=== PATIENT | female | born 1945 | race Caucasian/White ===

== ENCOUNTER → 2016-08-26 | Outpatient (CLI) | payer MEDICARE, BC ==
--- NOTE | 2016-08-26 09:05 | MM ---
Reason for exam: follow-up at short interval from prior study. Last mammogram was performed 6 months ago. History: Patient is postmenopausal. Benign US left guided VAD of the left breast, July 09, 2010. Benign US right guided VAD of the right breast, July 09, 2010. Cancelled Left US Needle Biopsy of the left breast, July 09, 2010. Reductions of both breasts, 2009. Took hormonal contraceptives for 3 years beginning at age 19. Physical Findings: Nurse did not find any significant physical abnormalities on exam. MG 3D Diag Mammo W/Cad BRIAN Bilateral CC and MLO view(s) were taken. Prior study comparison: February 18, 2016, bilateral MG 3d diag mammo w/cad BRIAN. September 05, 2015, right breast MG 3d diag mammo w/cad RT. There are scattered fibroglandular densities. No suspicious calcifications are seen. There is chronic nodularity. There is no dominant lesion. Post operative changes of bilateral mammoplasty. These results were verbally communicated with the patient and result sheet given to the patient on 08/26/16. ASSESSMENT: Incomplete: need additional imaging evaluation, BI-RAD 0 RECOMMENDATION: Ultrasound of the right breast.
--- NOTE | 2016-08-26 09:06 | USB ---
Reason for exam: follow-up at short interval from prior study. History: Patient is postmenopausal. Benign US left guided VAD of the left breast, July 09, 2010. Benign US right guided VAD of the right breast, July 09, 2010. Cancelled Left US Needle Biopsy of the left breast, July 09, 2010. Reductions of both breasts, 2009. Took hormonal contraceptives for 3 years beginning at age 19. US Breast RT Right breast ultrasound includes all four quadrants, the retroareolar region and axilla. Finding demonstrate a 0.6 x 0.5 x 0.5cm oval, cystic lesion at 7 o'clock. These results were verbally communicated with the patient and result sheet given to the patient on 08/26/16. ASSESSMENT: Benign, BI-RAD 2 RECOMMENDATION: Follow-up diagnostic mammogram of both breasts in 1 year.
== END | disposition home or self-care (01) ==
LOC: RADMAMWWP 07:55
PROVIDERS: ATTEND Family Medicine
DX: R92.8 Other abnormal and inconclusive findings on diagnostic imaging of breast (principal)
CPT/HCPCS: 76641; G0204; G0279

== ENCOUNTER → 2018-05-18 | Outpatient (CLI) | payer MEDICARE ==
--- NOTE | 2018-05-18 14:40 | MM ---
Reason for exam: additional evaluation requested from prior study. Last mammogram was performed 1 year and 9 months ago. History: Patient is postmenopausal. Benign US left guided VAD of the left breast, July 09, 2010. Benign US right guided VAD of the right breast, July 09, 2010. Cancelled Left US Needle Biopsy of the left breast, July 09, 2010. Reductions of both breasts, 2009. Took hormonal contraceptives for 3 years beginning at age 19. Physical Findings: Nurse Summary: 0.5cm nodule in the left breast at 11 o'clock (nurse mj). MG Diagnostic Mammo w CAD BRIAN Bilateral CC and MLO view(s) were taken. Prior study comparison: August 26, 2016, bilateral MG 3d diag mammo w/cad BRIAN. February 18, 2016, bilateral MG 3d diag mammo w/cad BRIAN. There are benign appearing round dystrophic calcifications bilaterally. Previous mammotome biopsy in the right and left breast. There is no discrete abnormality. Left BB at palpable correlates to clip and dystrophic calcifications. These results were verbally communicated with the patient and result sheet given to the patient on 05/18/18. ASSESSMENT: Benign, BI-RAD 2 RECOMMENDATION: Routine screening mammogram of both breasts in 1 year.
== END | disposition home or self-care (01) ==
LOC: RADMAMWWP 13:44
PROVIDERS: ATTEND Family Medicine
DX: R92.8 Other abnormal and inconclusive findings on diagnostic imaging of breast (principal)
CPT/HCPCS: 77066

== ENCOUNTER → 2018-08-04 | Outpatient (CLI) | payer MEDICARE | END | disposition home or self-care (01) | LOC: LABWHC1 13:34 | PROVIDERS: ATTEND Otolaryngology | DX: K11.7 Disturbances of salivary secretion (principal) | CPT/HCPCS: 36415; 86235 ==

== ENCOUNTER → 2018-08-10 | Outpatient (CLI) | payer MEDICARE ==
--- NOTE | 2018-08-10 12:23 | FL ---
EXAMINATION TYPE: FL barium swallow DATE OF EXAM: 08/10/2018 CLINICAL HISTORY: Difficulty initiating swallow. Upper esophageal dysphagia. Severe gastroesophageal reflux worse when supine. TECHNIQUE: A double contrast esophagram is performed utilizing air and barium. A total of 2 minutes and 19 seconds of fluoroscopic time was utilized during procedure. 43 fluoroscopic images were saved . COMPARISON: None FINDINGS: There is a delayed initiation of swallowing throughout the exam. The patient describes difficulty ini tiating swallowing. After multiple swallows distal esophageal tertiary contractions were seen likely relating to presbyes ophagus. Small hiatal hernia is present. Severe gastroesophageal reflux was noted on supine imaging w ith mild intraesophageal reflux on upright imaging. IMPRESSION: 1. Small hiatal hernia. 2. Difficulty with initiation of swallowing. Speech therapy consultation may be helpful. 3. Severe gastroesophageal reflux in the supine position. 4. Moderate intraesophageal reflux on upright imaging. 5. Pressure contractions in the distal esophagus suggesting presbyesophagus.
== END | disposition home or self-care (01) ==
LOC: RADFLWHC 09:49
PROVIDERS: ATTEND Otolaryngology
DX: K44.9 Diaphragmatic hernia without obstruction or gangrene (principal); K21.9 Gastro-esophageal reflux disease without esophagitis; K22.8 Other specified diseases of esophagus
CPT/HCPCS: 74220

== ENCOUNTER → 2019-01-17 | Outpatient (CLI) | payer MEDICARE ==
--- NOTE | 2019-01-17 12:23 | CT ---
EXAMINATION TYPE: CT sinus wo con DATE OF EXAM: 01/17/2019 COMPARISON: 10/09/2010 HISTORY: 73-year-old female sinus drainage. Prior sinus surgery in 2009 CT DLP: 545 mGycm Automated exposure control for dose reduction was used. TECHNIQUE: Noncontrast axial views of the paranasal sinuses were obtained. Coronal reconstructions we re performed. FINDINGS: PARANASAL SINUSES: Trace mucosal thickening along the floors of the maxillary sinuses. The frontal, ethmoid, and sphenoi d sinuses are clear and well pneumatized. There is no air-fluid level. Reactive jairo- osteogenesis is not seen. There is no destruction of the osseous neville of the paranasal sinuses. THE NASAL CAVITY: The osteomeatal complexes are patent. The nasal septum is not deviated. The imaged brain shows moderate generalized atrophy. Mastoid air cells and middle ear cavities are well pneumatized. Reformatted images confirm above findings. IMPRESSION: 1. Mild chronic maxillary sinus disease. 2. Rightward nasal septal deviation. 3. Moderate generalized cerebral atrophy.
== END | disposition home or self-care (01) ==
LOC: RADCTMAIN 10:53
PROVIDERS: ATTEND Otolaryngology
DX: J32.0 Chronic maxillary sinusitis (principal); J34.2 Deviated nasal septum; G31.1 Senile degeneration of brain, not elsewhere classified
CPT/HCPCS: 70486

== ENCOUNTER → 2020-07-31 | Outpatient (CLI) | payer MEDICARE ==
--- NOTE | 2020-08-01 04:59 | MR ---
EXAMINATION TYPE: MR cervical spine wo con DATE OF EXAM: 07/31/2020 COMPARISON: None HISTORY: 74-year-old female M54.5, cervicalgia. Headache, Dizziness TECHNIQUE: Multiplanar, multisequence images of the cervical spine were acquired. FINDINGS: No craniocervical junction abnormality, predental space widening, or prevertebral soft tissue swellin g. Postsurgical change of C4-C5 ACDF Moderate degenerative disc disease elsewhere in the cervical spine. There is a degenerative grade 1 anterolisthesis at C5-C6 and C7-T1. Ligamentum flavum thickening especially upper to mid cervical spine with multilevel facet and uncover tebral joint arthropathy. Heterogeneous marrow signal with some levels of Modic type II fatty endplate change such as anteriorl y at C7-T1. At C2-C3, there is posterior disc bulge with ligamentum flavum thickening contributing to a mild over all narrowing of the spinal canal. With facet arthropathy, no significant neuroforaminal stenosis. At C3-C4, above the fusion, there is ligamentum flavum thickening contributing to mild overall narrow ing of the spinal canal. Hypertrophic facet and uncovertebral joint arthropathy with mild left neurof oraminal stenosis. At the fused C4-C5 level, there is ligamentum flavum thickening and some residual posterior osteophyt ic ridging contributing to mild narrowing of the spinal canal. There is residual hyperostotic changes at the right uncovertebral and facet joint contributing to a moderate right neuroforaminal stenosis. Below the fusion at C5-C6, there is hypertrophic facet and uncovertebral joint arthropathy with grade 1 anterolisthesis. There is posterior disc bulge with a mild to moderate narrowing of the spinal can al with abutment and slight flattening of the ventral cord but no duke cord compression. Mild bilate ral neuroforaminal stenosis. At C6-C7, facet and uncovertebral joint arthropathy without significant canal or foraminal stenosis. At C7-T1, uncovertebral joint and facet arthropathy with right paracentral disc bulge. Trace grade 1 anterolisthesis. There is impression on the ventral thecal sac without significant spinal canal steno sis. Mild right neuroforaminal stenosis. At T1-T2, posterior disc bulge impressing on the ventral thecal sac without significant canal stenosi s. There is facet arthropathy with mild bilateral neuroforaminal stenosis. Normal course and signal intensity of the cervical spinal cord. No discrete myelopathic cord signal c shantal. IMPRESSION: 1. Status post C4-C5 ACDF. Residual bony hyperostosis at this level results in a moderate right neuro foraminal stenosis. 2. Moderate degenerative disc disease throughout the unfused levels with scattered facet and uncovert ebral joint arthropathy. Ligamentum flavum thickening in the upper to mid cervical spine. Degenerativ e grade 1 anterolisthesis at C5-C6 and C7-T1. 3. Below the fusion at C5-C6, there is a grade 1 anterolisthesis and disc bulge resulting in a mild t o moderate narrowing of the spinal canal with abutment of the ventral cord but no cord compression. 4. Additional mild narrowing of the spinal canal at C2-C3, C3-C4, and the fused C4-C5 levels. No high -grade canal compromise. 5. Additional variable mild neuroforaminal stenoses as outlined above.
== END ==
LOC: RADMRIMAIN 12:21
PROVIDERS: ATTEND Family Medicine
DX: M48.02 Spinal stenosis, cervical region (principal); M50.222 Other cervical disc displacement at C5-C6 level; Z98.1 Arthrodesis status
CPT/HCPCS: 72141

== ENCOUNTER → 2022-04-07 | Outpatient (CLI) | payer MEDICARE ==
--- NOTE | 2022-04-08 12:55 | MR ---
EXAMINATION TYPE: MR cervical spine wo/w con DATE OF EXAM: 04/07/2022 COMPARISON: 06/20/2015 HISTORY: Neck pain and headaches, history of surgery. CONTRAST: Performed utilizing 9 mL intravenous Gadavist gadolinium contrast. TECHNIQUE: Multiplanar multiecho imaging on a 3.0 Miriam magnet is performed through the cervical spin e. FINDINGS: The craniovertebral junction is normal. Vertebral body alignment is normal. Anterior cer vical fusion of C4-5 is present. Spinal cord maintains normal signal throughout the visualized course . C7-T1: There is loss of disc height is normal. Residual disc bulge anterior thecal sac flattening. N o cord contact. No spinal canal stenosis is present. There may be some uncovertebral joint hypertroph y contributing to right foraminal narrowing.. C6-7: There is loss of disc height is level. Minimal residual disc bulge mildly with anterior thecal sac compression. Some cord contact may be present. No cord deformity is evident. No spinal canal sten osis or neural foraminal stenosis.. C5-6: There is loss of disc height is level. Residual disc bulges anterior thecal sac contact. This c omes in close approximation with the spinal cord. No spinal canal stenosis is present. Some foraminal narrowing may be present from uncovertebral joint hypertrophy.. C4-5: There is loss of disc height to this level. Disc material does not clearly identified. No AP sp inal canal stenosis present. No cord contact. Right foramen is not well visualized. Left foramen appe ars widely patent.. C3-4: No focal disc herniation or significant disc bulge is evident. No spinal canal stenosis or sreekanth ral foraminal stenosis is present. C2-3: There is some mild central bulging with [id number] anterior thecal sac compression is com es in close approximation of the spinal cord. No cord deformity is evident. No spinal canal stenosis present. No abnormal enhancement is evident. IMPRESSIONS: 1. Multilevel degenerative disc changes discussed above. 2. Right foraminal narrowing due to uncovertebral joint hypertrophy C7-T1. 3. Disc bulging C6-7 may have some cord contact without deformity. Some minimal residual disc bulge a t C5-6 comes in close approximation to the spinal cord without deformity. Some mild disc bulging is a lso present at C2-3 without cord contact. 4. Findings are similar to the comparison 2015.
== END | disposition home or self-care (01) ==
LOC: RADMRIMAIN 11:52
PROVIDERS: ATTEND Orthopaedic Surgery
DX: M50.123 Cervical disc disorder at C6-C7 level with radiculopathy (principal); M43.22 Fusion of spine, cervical region; M48.02 Spinal stenosis, cervical region; M19.012 Primary osteoarthritis, left shoulder; M17.12 Unilateral primary osteoarthritis, left knee
CPT/HCPCS: 72156; A9585

== ENCOUNTER → 2022-09-23 | Outpatient (CLI) | payer MEDICARE ==
--- NOTE | 2022-09-23 09:51 | CT ---
EXAMINATION TYPE: CT shoulder LT wo con DATE OF EXAM: 09/23/2022 COMPARISON: None. HISTORY: pre op left shoulder. Pain. Severe glenohumeral osteoarthritis. CT DLP: 534 mGycm Automated exposure control for dose reduction was used. FINDINGS: Severe degenerative change left glenohumeral joint is confirmed with marked narrowing greatest inferi sanju. There is large bony projection from the medial aspect of the humeral head extending inferiorly measuring 2.1 x 0.7 cm coronal image 26. There is adjacent sclerosis and subchondral cystic change. S ome joint effusion extending anteriorly is felt present. Neutral version is noted. Moderate narrowing with moderate superior capsular hypertrophy at the acromioclavicular joint. Distal and acromion morphology is unremarkable. Rotator cuff muscle bulk is preserved. Visualized left lung is grossly clear. IMPRESSION: As above.
== END | disposition home or self-care (01) ==
LOC: RADCTMAIN 08:40
PROVIDERS: ATTEND Orthopaedic Surgery Hand Surgery
DX: M19.012 Primary osteoarthritis, left shoulder (principal); M25.412 Effusion, left shoulder; M25.812 Other specified joint disorders, left shoulder

== ENCOUNTER → 2022-10-23 | Outpatient (CLI) | payer MEDICARE ==
[2022-10-23 15:01] LABS: INR 1.3 (<1.2); Prothrombin Time 13.5 sec (9.0-12.0)
[2022-10-23 20:14] LABS: HCT 37.1 % (37.2-46.3); HGB 11.5 g/dL (12.0-15.0); MCH 26.1 pg (27.0-32.0); MCV 84.1 fL (80.0-97.0); Mean Platelet Volume 10.4 fL (9.5-12.2); NRBC Per 100 WBC 0 /100 WBCS (0.0-0.0); Platelet Count 306 X 10*3/uL (140-440); RBC 4.41 X 10*6/uL (4.10-5.20); RDW 14.7 % (11.5-14.5); WBC 6.05 X 10*3/uL (4.50-10.00)
[2022-10-23 20:26] LABS: Appearance,Urine Clear (Clear); Bilirubin,Urine Negative (Negative); Blood,Urine Negative (Negative); Color,Urine Yellow (Yellow); Ketones,Urine Negative (Negative); Nitrite,Urine Negative (Negative); PH, Urine 8.5 (5.0-8.0); Specific Gravity,Urine 1.016 (1.001-1.030)
[2022-10-23 20:32] LABS: Bacteria,Urine Trace /HPF (None Seen)
[2022-10-23 20:44] LABS: African American GFR (CKD) 96.2 (60.0-200.0); Albumin/Globulin Ratio 1.38 (1.60-3.17); BUN/Creat Ratio 14.14 Ratio (12.00-20.00); Blood Urea Nitrogen 9.9 mg/dL (9.0-27.0); Globulin 2.9 g/dL (1.6-3.3); Potassium 4.3 mmol/L (3.5-5.5); Total Bilirubin 1.5 mg/dL (0.30-1.20); Total Protein 6.9 g/dL (6.2-8.2)
== END | disposition home or self-care (01) ==
LOC: LABPAT 13:48
PROVIDERS: ATTEND Orthopaedic Surgery Hand Surgery
DX: Z01.818 Encounter for other preprocedural examination (principal); M19.012 Primary osteoarthritis, left shoulder; I49.3 Ventricular premature depolarization; I44.0 Atrioventricular block, first degree
CPT/HCPCS: 80053; 81001; 85027; 85610; 85730; 87070; 93005

== ENCOUNTER 2022-11-02 09:53 | Day surgery (SDC) | payer MEDICARE ==
[~2022-11-02 09:53] MED LIST: ACETAMINOPHEN TAB 500 MG TAB PO PRN; GABAPENTIN 300 MG CAP PO PRN; MELOXICAM 7.5 MG TAB PO PRN; ONDANSETRON 4 MG/2 ML VIAL IVP PRN
[2022-11-02] MEDS ORDERED: ONDANSETRON 4 MG/2 ML VIAL IVP ONE (10:20)
[2022-11-02] MEDS ORDERED: MIDAZOLAM 2 MG/2 ML VIAL IV PRN (10:20)
[2022-11-02] MEDS ORDERED: LIDOCAINE 1% (10MG/ML) FOR IV START INTRADERMA PRN (10:20)
[2022-11-02] MEDS ORDERED: HYDROmorphone 0.5 MG/0.5 ML SYRINGE IVP PRN ×3 (10:20→13:43)
[2022-11-02] MEDS ORDERED: DEXAMETHASONE SOD PHOSPHATE 4 MG/ML 1 ML VIAL IV ONE (10:20)
[2022-11-02] MEDS ORDERED: VANCOMYCIN 1,500 MG in SODIUM CHLORIDE 0.9% 500 ML 500 ML IVPB PRN (10:30)
[2022-11-02] MEDS: LACTATED RINGERS 1,000 ML IV SCH (11:11)
[2022-11-02 11:17] LABS: Glucose,Whole Blood 145 mg/dL (70-110)
[2022-11-02 11:51] LABS: INR 1.1 (<1.2); Prothrombin Time 11.2 sec (9.0-12.0)
--- NOTE | 2022-11-02 13:16 | P.CRDCN ---
History of Present Illness Consult date: 11/02/22 History of present illness: HISTORY OF PRESENT ILLNESS: This is a 77-year-old female with a past medical history significant for DVT/PE, hypertension, hyperlipidemia, hypothyroidism, diabetes, and seizure disorder. We have been asked to see the patient in consultation for atrial fibrillation. Patient examined at the bedside in the preoperative area. Patient is scheduled to undergo left total shoulder replacement today with Dr. Sanchez. Preoperative EKG performed revealing atrial fibrillation. The patient denies a history of atrial fibrillation. Her rates are controlled. She denies chest pain or pressure. Denies SOB. Denies for patient. Denies dizziness or lightheadedness. She states she had a stress test that was performed recently which was negative to her knowledge. She states that she obtained cardiac clearance from her cardiolo gist, Dr. Roldan in [place]. REVIEW OF SYSTEMS: At the time of my exam: CONSTITUTIONAL: Denies fever or chills. HEENT: Denies blurred vision, vision changes, or eye pain. Denies hemoptysis CARDIOVASCULAR: Denies chest pain. Denies orthopnea. Denies PND. Denies palpitations RESPIRATORY: Denies shortness of breath. GASTROINTESTINAL: Denies abdominal pain. Denies nausea or vomiting. HEMATOLOGIC: Denies bleeding disorders. GENITOURINARY: Denies any blood in urine. SKIN: Denies pruitis. Denies rash. PHYSICAL EXAM: VITAL SIGNS: Reviewed. GENERAL: Well-developed in no acute distress. HEENT: Head is normocephalic. Pupils are equal, round. Sclerae anicteric. Mucous membranes of the mouth are moist. Neck supple. No JVD or thyromegaly LUNGS: Respirations even and unlabored. Lungs essentially clear to auscultation bilaterally. HEART: Irregular rate and rhythm. S1 and S2 heard. ABDOMEN: Soft. Nondistended. Nontender. EXTREMITIES: Normal range of motion. No clubbing or cyanosis. Peripheral pulses intact. No lower extremity edema NEUROLOGIC: Awake and alert. Oriented x 3. ASSESSMENT: Osteoarthritis, scheduled for left total shoulder replacement New-onset atrial fibrillation with controlled ventricular rates, duration unknown History of DVT/PE, on warfarin outpatient Hypertension Hyperlipidemia Hypothyroidism Diabetes Seizure disorder PLAN: Patient evaluated at the bedside by Dr. Russ. Patient may proceed with surgery today per Dr. Russ. She is to resume per coumadin MICHELLE after surgery. She is to resume her atenolol as well for rate control. Patient instructed to follow up post discharge with her primary portable irrigation operator. Nurse practitioner note has been reviewed by physician. Signing provider agrees with the documented findings, assessment, and plan of care. Past Medical History Past Medical History: Diabetes Mellitus, Deep Vein Thrombosis (DVT), GERD/Reflux, GI Bleed, Hyperlipidemia, Hypertension, Myocardial Infarction (UT), Musculoskeletal Disorder, Osteoarthritis (OA), Pulmonary Embolus (PE), Thyroid Disorder Additional Past Medical History / Comment(s): dvt lt leg, pancreatitis, past hx. MIGRAINES, DIVERTICULITIS, chronic neck pain & chronic headaches, multiple PE's 2015-had surg., pt. denies any hx. of [place], uses cane for balance, had recent stress test, awaiting results Last Myocardial Infarction Date:: unknown History of Any Multi-Drug Resistant Organisms: None Reported Past Surgical History: Adenoidectomy, Appendectomy, Back Surgery, Breast Surgery, Cholecystectomy, Heart Catheterization, Joint Replacement, Orthopedic Surgery, Tonsillectomy, Tubal Ligation Additional Past Surgical History / Comment(s): agus filter removed, CATARACTS-LENS IMPLANTS, BREAST REDUCTION, RT KNEE REPLACEMENT, 2 TUMORS REMOVED FROM RT LEG ,LT EYE SOCKET TUMOR REMOVED.HEMORRHIODECTOMY, RHIZOTOMY, ant. cervical fusion 2014 Past Anesthesia/Blood Transfusion Reactions: No Reported Reaction Additional Past Anesthesia/Blood Transfusion Reaction / Comment(s): limited ROM neck Smoking Status: Former smoker - Past Family History Father Family Medical History: Cancer, Thyroid Disorder Additional Family Medical History / Comment(s): Liver CA Mother Family Medical History: Thyroid Disorder Sister(s) Family Medical History: Cancer Additional Family Medical History / Comment(s): Throat CA Medications and Allergies Home Medications Medication Instructions Recorded Confirmed Type Atenolol/Chlorthalidone 1 each PO DAILY 10/08/14 10/30/22 History [Atenolol-Chlorthalidone 50-25] Atorvastatin [Lipitor] 20 mg PO HS 10/08/14 10/30/22 History Divalproex [Depakote] 250 mg PO BID 10/08/14 10/30/22 History Insulin Detemir (Levemir) [Levemir] 26 unit SQ HS 10/08/14 11/02/22 History Levothyroxine Sodium [Synthroid] 137 mcg PO DAILY 10/08/14 10/30/22 History QUEtiapine [SEROquel] 100 mg PO HS 10/08/14 10/30/22 History DULoxetine HCL [Cymbalta] 60 mg PO DAILY 10/30/22 11/02/22 History HYDROcodone/APAP 7.5-325MG [[place] 1 tab PO Q8H PRN 10/30/22 11/02/22 History 7.5-325] Omeprazole [PriLOSEC] 20 mg PO AC-BRKFST 10/30/22 10/30/22 History Warfarin [Coumadin] 7.5 mg PO HS 10/30/22 11/02/22 History Allergies Allergy/AdvReac Type Severity Reaction Status Date / Time adhesive Allergy swelling,rash Verified 11/02/22 10:42 to surgical adhesive Horse/Equine Containing Allergy Unknown Verified 11/02/22 10:42 Products venom-honey bee Allergy Swelling Verified 11/02/22 10:42 [bee venom (honey bee)] Physical Exam Vitals: Vital Signs Temp Pulse Resp BP BP Pulse Ox 11/02/22 12:52 64 16 138/74 100 11/02/22 12:17 109 H 16 151/71 98 11/02/22 10:57 96.9 F L 64 18 171/80 95 Intake and Output 11/01/22 11/02/22 11/02/22 22:59 06:59 14:59 Other: Weight 97.2 kg Results Coagulation 11/02/22 Range/Units 11:27 PT 11.2 (9.0-12.0) sec Current Medications Generic Name Dose Route Start Last Admin Trade Name Freq PRN Reason Stop Dose Admin Cefazolin Sodium 2 gm/ Sodium 50 mls @ 100 mls/hr 11/02/22 05:00 Chloride IVPB 11/02/22 23:00 ONCE PRN pre-op Lactated Ringer's 1,000 mls @ 20 mls/hr 11/02/22 10:20 11/02/22 11:11 Lactated Ringers IV 12/02/22 10:21 0 mls .Q24H JOSÉ MIGUEL Administration Lidocaine HCl 0.1 ml 11/02/22 10:20 Lidocaine 1% (10mg/Ml) For Iv Start INTRADERMA 12/02/22 10:21 PER PROTOCOL PRN IV Start Ondansetron HCl 4 mg 11/02/22 05:00 Ondansetron 4 Mg/2 Ml Vial IVP 11/02/22 23:00 ONCE PRN pre-op Intake and Output 11/01/22 11/02/22 11/02/22 22:59 06:59 14:59 Other: Weight 97.2 kg Patient Weight 11/03/22 06:59 Weight 97.2 kg
[2022-11-02] MEDS ORDERED: TRANEXAMIC ACID 1,000 MG in SODIUM CHLORIDE 0.9% 100 ML IVPB ONE (13:22)
[2022-11-02] MEDS ORDERED: NEOSTIGMINE 1 MG/ML 10 ML VIAL ONE (13:33)
[2022-11-02] MEDS ORDERED: PROPOFOL 10 MG/ML 20 ML VIAL IV ONE (13:33)
[2022-11-02] MEDS ORDERED: CLINDAMYCIN 150 MG/ML 4 ML VIAL ONE (13:33)
[2022-11-02] MEDS ORDERED: fentaNYL (PF) 50 MCG/ML 2 ML AMP ONE (13:33)
[2022-11-02] MEDS ORDERED: GLYCOPYRROLATE 0.2 MG/ML 2 ML VIAL ONE (13:33)
[2022-11-02] MEDS ORDERED: MIDAZOLAM 2 MG/2 ML VIAL ONE (13:33)
[2022-11-02] MEDS ORDERED: SUCCINYLCHOLINE CHLORIDE 200 MG/10 ML VIAL IV ONE (13:33)
[2022-11-02] MEDS ORDERED: ROPIVACAINE 5 MG/ML 30 ML VIAL ONE (13:33)
[2022-11-02] MEDS ORDERED: LIDOCAINE 2% INJ 20 MG/ML (2 ML VIAL) ONE (13:33)
[2022-11-02] MEDS ORDERED: ROCURONIUM 10 MG/ML (5 ML VIAL) IV ONE (13:33)
[2022-11-02] MEDS ORDERED: TRANEXAMIC ACID IN NACL,ISO-OS 1,000 MG/100 ML BAG ONE (13:33)
[2022-11-02] MEDS ORDERED: PHENYLEPHRINE-0.9% NACL SYG 1,000 MCG/10 ML SYRINGE ONE (13:33)
[2022-11-02] MEDS ORDERED: SENNOSIDES-DOCUSATE SODIUM 1 EACH TAB PO PRN (13:43)
[2022-11-02] MEDS ORDERED: TEMAZEPAM 15 MG CAP PO PRN (13:43)
[2022-11-02] MEDS ORDERED: ONDANSETRON 4 MG/2 ML VIAL IVP PRN ×2 (13:43→15:54)
[2022-11-02] MEDS ORDERED: HYDROcodone/APAP 10-325MG 1 EACH TAB PO PRN (13:46)
--- NOTE | 2022-11-02 14:59 | P.ANPRN ---
Procedure Note - Anesthesia - Nerve Block Performed Left Interscalene Time Out Performed: Yes (:58) Date of Procedure: 11/02/22 Procedure Start Time: :58 Procedure Stop Time: 12:03 Location of Patient: PreOp Indication: Acute Post-Operative Pain, Requested by Surgeon (Dr Sanchez) Sedation Type: Sedate with meaningful contact maintained Preparation: Sterile Prep Position: Supine Catheter: None Needle Types: Pajunk Needle Gauge: Other (see comment) (22g) Ultrasound used to visualize needle placement: Yes Ultrasound used to observe medication spread: Yes Injectate: 0.5% Ropivacaine (see comment for volume) (20cc) Blood Aspirated: No Pain Paresthesia on Injection Noted: No Resistance on Injection: Normal Image Stored and Saved: Yes Events: Uneventful and Well Tolerated
[2022-11-02] MEDS ORDERED: LACTATED RINGERS 1,000 ML IV ONE (15:17)
--- NOTE | 2022-11-02 16:31 | P.OP ---
Date of Procedure: 11/02/22 Preoperative Diagnosis: Left advanced glenohumeral arthritis Postoperative Diagnosis: Same Procedure(s) Performed: Left reverse total shoulder arthroplasty Implants: Arthrex universe reverse -24 mm 2+ baseplate with 25 mm central screw. 28, 24, 16, 16 mm peripheral locking screws, 36 mm glenoid sphere - Size 10 humeral stem, 36 mm baseplate, neutral poly- Anesthesia: GETA, ana maria Surgeon: Nataliia Sanchez Affiliate Manager #1: Malinda Fraser Estimated Blood Loss (ml): 100 Pathology: none sent Condition: stable Disposition: PACU Indications for Procedure: Rosario is a 77-year-old female who's had a long history of advanced glenohumer al arthritis. She is exhausted conservative measures and would like to proceed with surgical intervention. We had a long discussion about her treatment options and given her age we decided to proceed with a reverse total shoulder arthroplasty. Description of Procedure: The patient, operative extremity, and procedure were identified in the preop holding area. After informed consent was obtained the patient received a regional block by the anesthesia team. She was then found to be in new onset atrial fibrillation. The patient had recently cleared cardiac stress test and a urgent cardiac consultation was obtained. She was cleared by the cardiology team for surgery. She was then brought back to the operating room where general anesthesia was provided by the anesthesia team. She was then positioned in the beachchair position. Left upper extremity was then prepped and draped in normal sterile fashion. A formal timeout was then performed. An oblique incision was made just lateral to the coracoid towards the insertion of the deltoid. Dissection was carried down to the deltopectoral interval where the cephalic vein was identified and mobilized medially. Interval between the deltoid and the pectoralis muscle was developed. Clavipectoral fascia was identified and incised longitudinally laterally to the conjoined tendon. Sukhjinder retractor was then inserted under the conjoined tendon and the deltoid muscle. 1 cm of the pectoralis tendon was released the subacromial space was developed with a zavala elevator. The arm was then placed in external rotation. The biceps tendon was identified in the groove and transected. A biceps tenodesis was performed distal to the bicipital groove. The proximal stump of the biceps was then followed proximally and the rotator interval was opened. A subscapularis tenotomy was performed and the tendon was tagged were later repair. Care was taken to protect the axillary nerve. The glenohumeral joint was then dislocated. An entry reamer was utilized just posterior to the bicipital groove. Canal finder was then utilized followed by the 35 cutting jig for the humerus. The block was set with about 30 of external rotation. Saw was then utilized to remove the humeral head. The cut was then protected with a metal plate protector. Humeral head was then retracted posteriorly to access the glenoid. The anterior capsule was dissected away from the subscapularis tendon and removed. The labrum and the biceps tendon stump was identified and removed circumferentially to expose the bony edges of the glenoid. The patient specific guide was then utilized to place the guidepin. Over the guide pin, reamers were utilized until bleeding bone was identified. The glenoid was copiously irrigated and cleaned. The central screw hole was then drilled and tapped. Following the CT-guided plan a 24 mm 2+ baseplate with a 25 mm central screw was inserted with good purchase. The peripheral screw holes were filled with locking screws. A 36 mm glenoid was then impacted into place and secured with the central screw. Attention was then turned to the humerus. The protecting plate was removed and serial broaches were utilized until a size 10 had good fixation in the canal. A 36 reaming cup was then utilized over the broach. The instruments were removed and the humerus was cleaned with copious amounts of normal saline. A size 10 humeral component with a 36 mm cup was then impacted in place. A neutral poly- was trialed and found to have a good fit when the joint was reduced. The final poly-was opened inserted and the joint was reduced again. There Was minimal shuck and good range of motion. The entire construct was again irrigated with normal saline. The subscapularis tendon was not under undue tension and was repaired with #3 FiberWire. The wound was then closed in a layered fashion with 0 Vicryl 3-0 Vicryl 4-0 Monocryl skin glue. Wound was dressed with operative foam dressing. Patient was aroused by the anesthesia team and brought back to PACU in stable condition.
[2022-11-02 17:11] LABS: Glucose,Whole Blood 177 mg/dL (70-110)
--- NOTE | 2022-11-02 17:20 | XR ---
EXAMINATION TYPE: XR shoulder limited LT DATE OF EXAM: 11/02/2022 4:59 PM INDICATION: Patient age:Female; 77 years old; Reason for study: post op reverse TSA; COMPARISON: 11/13/2014 TECHNIQUE: The left shoulder was examined in AP, internally rotated and scapular Y projections. FINDINGS: Reverse left shoulder arthroplasty changes, hardware appears intact. No fractures. Small le ft pleural effusion. No evidence of acute osseous pathology, joint dislocation, or soft tissue swelli ng. IMPRESSION: 1. Post reverse left total shoulder arthroplasty with hardware intact. No evidence fracture. 2. Small left pleural effusion.
[2022-11-02] MEDS: ATORVASTATIN 20 MG TAB PO SCH (20:34)
[2022-11-02] MEDS: HYDROcodone/APAP 10-325MG 1 EACH TAB PO PRN (20:34)
[2022-11-02] MEDS: INSULIN DETEMIR (LEVEMIR) 100 UNIT/ML SYR SQ SCH (21:07)
[2022-11-02] MEDS: QUEtiapine 100 MG TAB PO SCH (21:07)
[2022-11-02] MEDS: DIVALPROEX 250 MG TABLET.DR PO SCH (21:07)
[2022-11-02] MEDS: WARFARIN 7.5 MG TAB PO SCH (21:07)
[2022-11-02 21:12] LABS: Glucose,Whole Blood 247 mg/dL (70-110)
--- NOTE | 2022-11-02 23:41 | CONS ---
CONSULTATION REASON FOR CONSULTATION: Advice regarding hypertension, hyperlipidemia and multiple medical issues, requested by Orthopedic Surgery. HISTORY OF PRESENT ILLNESS: This is a 77-year-old woman with a past medical history of multiple medical problems including hypertension, hyperlipidemia, history of DVT, pulmonary embolism, being followed by Dr. Wells in the outpatient setting, underwent left total shoulder arthroplasty by Dr. Sanchez. There is no history of any fever, or rigors. No history of headache, loss of consciousness, chest pain, or shortness of breath at this time. PAST MEDICAL HISTORY: Reviewed include DVT, hypertension, hyperlipidemia, PE. Rest of the history and rest of the chart is also reviewed. HOME MEDICATIONS: Reviewed include Coumadin, hydrocodone, Levemir. Dose and rest of medications reviewed. ALLERGIES: Adhesives. Rest of the allergies noted. FAMILY HISTORY: History of thyroid disorder, liver cancer. SOCIAL HISTORY: Previous history of smoking. REVIEW OF SYSTEMS: A 14-point review is negative except as mentioned earlier. PHYSICAL EXAMINATION: VITAL SIGNS: Pulse is 67, blood pressure 111/67, respirations 15. HEENT: Conjunctivae normal. NECK: No jugular venous distention. CARDIOVASCULAR: S1, S2 muffled. RESPIRATIONS: Breath sounds diminished at the bases. No rhonchi. No crackles. ABDOMEN: Soft, nontender. LEGS: No edema. NERVOUS SYSTEM: Nonfocal. EXTREMITIES: Left shoulder, status post surgery. LABORATORY DATA: Glucose 177. ASSESSMENT: 1. Status post left shoulder arthroplasty. 2. History of pulmonary embolism, deep venous thrombosis. 3. Diabetes mellitus, type 2. 4. Hypertension. 5. Hyperlipidemia. 6. Multiple medical issues. RECOMMENDATIONS AND DISCUSSION: This is a 77-year-old woman, who presented with multiple complex medical issues, we will monitor the patient closely. I recommend resume the home medications. Monitor PT/INR closely. I would also recommend Lovenox at this time and monitor the patient closely. See orders for further details. Further recommendations to follow. MMODL / IJN: [id number] /
[2022-11-03] MEDS: HYDROcodone/APAP 10-325MG 1 EACH TAB PO PRN ×3 (00:12→09:42)
[2022-11-03] MEDS: HYDROmorphone 0.5 MG/0.5 ML SYRINGE IVP PRN ×2 (02:06→11:59)
[2022-11-03] MEDS: LEVOTHYROXINE 137 MCG TAB PO SCH (05:57)
[2022-11-03] MEDS: PANTOPRAZOLE 40 MG TABLET PO SCH (05:57)
[2022-11-03 09:06] LABS: Basophils % (A) 0 %; Eosinophils % (A) 0 %; HCT 31.4 % (34.0-46.0); HGB 10.2 gm/dL (11.4-16.0); Hypochromasia Slight; Lymphocytes # (A) 1.3 k/uL (1.0-4.8); Lymphocytes % (A) 15 %; MCH 26.9 pg (25.0-35.0); MCHC 32.4 g/dL (31.0-37.0); MCV 82.9 fL (80.0-100.0); Mean Platelet Volume 7.5; Monocytes # (A) 0.6 k/uL (0-1.0); Monocytes % (A) 7 %; Neutrophils # (A) 6.2 k/uL (1.3-7.7); Neutrophils % (A) 76 %; Platelet Count 254 k/uL (150-450); RBC 3.79 m/uL (3.80-5.40); RDW 14.8 % (11.5-15.5); WBC 8.3 k/uL (3.8-10.6)
[2022-11-03 09:12] LABS: African American GFR (CKD) >90 (>60 ml/min/1.73 sqM); Anion Gap 8 mmol/L; Blood Urea Nitrogen 21 mg/dL (7-17); Carbon Dioxide 28 mmol/L (22-30); Chloride 100 mmol/L (98-107); Glucose 115 mg/dL (74-99); Non-African American GFR(CKD) >90 (>60 ml/min/1.73 sqM); Sodium 136 mmol/L (137-145)
--- NOTE | 2022-11-03 09:14 | P.PN ---
Subjective Progress Note Date: 11/03/22 The patient was seen and evaluated this morning. She is a 77-year-old female patient with history of DVT/PE on anticoagulation was, then as well as hypertension and dyslipidemia and diabetes and seizure disorder who was seen yesterday for newly diagnosis atrial fibrillation before she is going to undergo surgery on the shoulder. The patient was seen and evaluated today. The surgery went well. She was seen this morning beach she is asymptomatic and hemodynamically stable and she is in normal sinus mechanism. The examination is remarkable for stable vital signs with a regular rate and rhythm and clear breathing sounds bilaterally and no lower extremity is edema noted From the cardiovascular standpoint of view, we'll continue the current medical regimen. The patient can follow-up with her childcare administrator as an outpatient. She to be on anticoagulation Objective - Vital Signs Vital signs: Vital Signs Temp 98.6 F 11/03/22 07:20 Pulse 69 11/03/22 07:20 Resp 18 11/03/22 07:20 BP 115/65 11/03/22 07:20 Pulse Ox 95 11/03/22 07:20 FiO2 Intake & Output 11/02/22 11/03/22 11/03/22 18:59 06:59 18:59 Intake Total 2300 540 Output Total 100 Balance 2200 540 Weight 97.2 kg 97.2 kg Intake: IV 2300 Intake, IV Titration 200 Amount ceFAZolin 2 gm In Sodium 200 Chloride 0.9% 50 ml @ 100 mls/hr IVPB Q8H [facility] Rx#: [id number] Oral 340 Output: Estimated Blood Loss 100 Other: # Voids 2 - Labs CBC & Chem 7: 11/03/22 08:40 11/03/22 08:40 Labs: Abnormal Lab Results - Last 24 Hours (Table) 11/02/22 11/02/22 11/02/22 Range/Units 11:09 17:09 21:11 RBC (3.80-5.40) m/uL Hgb (11.4-16.0) gm/dL Hct (34.0-46.0) % Sodium (137-145) mmol/L BUN (7-17) mg/dL Glucose (74-99) mg/dL POC Glucose (mg/dL) 145 H 177 H 247 H (70-110) mg/dL 06/06/23 06/06/23 Range/Units 08:40 08:40 RBC 3.79 L (3.80-5.40) m/uL Hgb 10.2 L (11.4-16.0) gm/dL Hct 31.4 L (34.0-46.0) % Sodium 136 L (137-145) mmol/L BUN 21 H (7-17) mg/dL Glucose 115 H (74-99) mg/dL POC Glucose (mg/dL) (70-110) mg/dL
[2022-11-03 09:18] LABS: INR 1.1 (<1.2); Prothrombin Time 11.4 sec (9.0-12.0)
[2022-11-03] MEDS: DIVALPROEX 250 MG TABLET.DR PO SCH ×2 (09:43→22:42)
[2022-11-03] MEDS: atenoloL 50 MG TAB PO SCH (09:44)
[2022-11-03] MEDS: CHLORTHALIDONE 25 MG TAB PO SCH (09:44)
[2022-11-03] MEDS: DULoxetine HCL 60 MG CAPSULE.DR PO SCH (09:44)
--- NOTE | 2022-11-03 10:35 | P.DS ---
Providers Expected date of discharge: 11/03/22 Attending physician: Nataliia Sanchez DO Consults: 11/02/22 12:26 Consult Physician Urgent Consulting Provider: Janes Hackett Consult Reason/Comments: NEW ONSET AFIB Do you want consulting provider notified?: Yes 11/02/22 13:43 Consult Physician Routine Consulting Provider: Tammy Zheng Consult Reason/Comments: medical management Do you want consulting provider notified?: Yes Primary care physician: Joselin Wells - Discharge Diagnosis(es) (1) Primary osteoarthritis, left shoulder Current Visit: Yes Status: Acute (2) Status post reverse arthroplasty of left shoulder Current Visit: Yes Status: Acute (3) History of pulmonary embolism Current Visit: Yes Status: Acute (4) Hypertension Current Visit: Yes Status: Acute (5) Hyperlipidemia Current Visit: Yes Status: Acute (6) Diabetes mellitus Current Visit: Yes Status: Acute Hospital Course: This is a 77-year-old female who has history of severe degenerative arthritis of the left shoulder and presented to discuss surgical options. After discussion and consideration the patient elects to proceed with reverse total shoulder arthroplasty. The patient is seen preoperatively by their family physician and cardiology and cleared for surgery. The patient is admitted to [facility] on 11/02/2022 for left reverse total shoulder arthroplasty. She is doing well postoperatively. Vital signs and hemoglobin are stable. The patient is able to get up out of bed independently and is ambulating without assistance. Pain is well controlled. She did have A.fib in pre-op yesterday and was seen by Cardiology. Today, the patient is in normal sinus rhythm. She will continue her normal dose of Coumadin. Patient is discharged to home on postoperative day #1 in good condition. Please see med rec for accurate list of home medications. Pertinent Studies: Laboratory Tests 11/03/22 11/03/22 08:40 08:40 WBC 8.3 RBC 3.79 L Hgb 10.2 L Hct 31.4 L PT 11.4 INR 1.1 Patient Condition at Discharge: Stable Plan - Discharge Summary Discharge Rx Participant: No New Discharge Prescriptions: New Sennosides-Docusate Sodium [Senokot-S] 2 tab PO DAILY #30 tablet oxyCODONE HCL/ACETAMINOPHEN [Percocet 5-325 mg] 1 tab PO Q4-6H PRN #30 tab PRN Reason: Pain No Action Levothyroxine Sodium [Synthroid] 137 mcg PO DAILY Insulin Detemir (Levemir) [Levemir] 26 unit SQ HS Atenolol/Chlorthalidone [Atenolol-Chlorthalidone 50-25] 1 each PO DAILY Atorvastatin [Lipitor] 20 mg PO HS Divalproex [Depakote] 250 mg PO BID QUEtiapine [SEROquel] 100 mg PO HS DULoxetine HCL [Cymbalta] 60 mg PO DAILY Omeprazole [PriLOSEC] 20 mg PO AC-BRKFST Warfarin [Coumadin] 7.5 mg PO HS HYDROcodone/APAP 7.5-325MG [[place] 7.5-325] 1 tab PO Q8H PRN PRN Reason: Pain Discharge Medication List Atenolol/Chlorthalidone [Atenolol-Chlorthalidone 50-25] 1 each PO DAILY 10/08/14 [History] Atorvastatin [Lipitor] 20 mg PO HS 10/08/14 [History] Divalproex [Depakote] 250 mg PO BID 10/08/14 [History] Insulin Detemir (Levemir) [Levemir] 26 unit SQ HS 10/08/14 [History] Levothyroxine Sodium [Synthroid] 137 mcg PO DAILY 10/08/14 [History] QUEtiapine [SEROquel] 100 mg PO HS 10/08/14 [History] DULoxetine HCL [Cymbalta] 60 mg PO DAILY 10/30/22 [History] HYDROcodone/APAP 7.5-325MG [[place] 7.5-325] 1 tab PO Q8H PRN 10/30/22 [History] Omeprazole [PriLOSEC] 20 mg PO AC-BRKFST 10/30/22 [History] Warfarin [Coumadin] 7.5 mg PO HS 10/30/22 [History] Sennosides-Docusate Sodium [Senokot-S] 2 tab PO DAILY #30 tablet 11/02/22 [Rx] oxyCODONE HCL/ACETAMINOPHEN [Percocet 5-325 mg] 1 tab PO Q4-6H PRN #30 tab 11/03/22 [Rx] Follow up Appointment(s)/Referral(s): Malinda Fraser NPC [Nurse Practitioner] - 11/16/22 1:00 pm Joselin Wells DO [Primary Care Provider] - 1 Week Activity/Diet/Wound Care/Special Instructions: Keep Optifoam dressing on for 1 week. Remove dressing after 1 week. No dressing needed after. May shower with dressing on. Arm sling for comfort. Apply ice to the shoulder. Follow up with Malinda Fraser NP in 2 weeks. Discharge Disposition: HOME SELF-CARE
[2022-11-03] MEDS: ENOXAPARIN 150 MG/ML SYRINGE SQ SCH (13:21)
[2022-11-03 13:50] LABS: Creatine Kinase MB 14.8 ng/mL (0.0-2.4); Troponin I <0.012 ng/mL (0.000-0.034)
--- NOTE | 2022-11-03 14:10 | PN ---
PROGRESS NOTE DATE OF SERVICE: 11/03/2022 SUBJECTIVE: This 77-year-old woman was admitted after left shoulder arthroplasty. Also, she had history of DVT and PE also. No chest pain. No palpitation. Orthopedics is planning discharge. I would recommend Lovenox bridging on her. OBJECTIVE: VITAL SIGNS: Pulse is 69, blood pressure 115/65, respiration 18. CHEST: Clear to auscultation. CARDIOVASCULAR: S1 and S2. ABDOMEN: Soft. EXTREMITIES: Left shoulder, status post surgery. LABORATORY DATA: Reviewed. ASSESSMENT: 1. Status post left shoulder arthroplasty. 2. History of pulmonary embolism and deep venous thrombosis. 3. Diabetes mellitus type 2. 4. Lovenox bridging. 5. Hypertension. 6. Hyperlipidemia. 7. Multiple medical issues. RECOMMENDATIONS: I would recommend to continue current management. Resume the home medications. Resume the home dose of Coumadin. I would also recommend Lovenox 150 mg subcu daily for the next 3 days and repeat PT/INR in the outpatient setting with the primary physician, and continue to monitor. Further recommendations to follow. See orders for the details. MMODL / IJN: [id number] /
[2022-11-03] MEDS: LACTATED RINGERS 1,000 ML IV SCH (14:59)
[2022-11-03 16:50] LABS: Glucose,Whole Blood 214 mg/dL (70-110)
[2022-11-03] MEDS: oxyCODONE-APAP 5-325MG 1 EACH TAB PO PRN ×2 (17:22→22:43)
[2022-11-03 20:17] LABS: Glucose,Whole Blood 222 mg/dL (70-110)
[2022-11-03] MEDS: INSULIN DETEMIR (LEVEMIR) 100 UNIT/ML SYR SQ SCH (22:42)
[2022-11-03] MEDS: QUEtiapine 100 MG TAB PO SCH (22:43)
[2022-11-03] MEDS: WARFARIN 7.5 MG TAB PO SCH (22:43)
[2022-11-03] MEDS: ATORVASTATIN 20 MG TAB PO SCH (22:46)
[2022-11-04 06:29] LABS: Glucose,Whole Blood 171 mg/dL (70-110)
[2022-11-04] MEDS: LEVOTHYROXINE 137 MCG TAB PO SCH (07:10)
[2022-11-04] MEDS: oxyCODONE-APAP 5-325MG 1 EACH TAB PO PRN (07:10)
[2022-11-04] MEDS: PANTOPRAZOLE 40 MG TABLET PO SCH (07:11)
--- NOTE | 2022-11-04 09:49 | CA ---
Transthoracic Echo Report Name: Rosario Dixon Age: 77 Gender: F : 1945 Exam Date: 11/03/2022 13:29 Exam Location: [place] Echo Ht (in): 65 Wt (lb): 214 Ordering Physician: Nima Russ MD ([id number]) Attending/Referring Phys: Muck Farmer Kamlesh Garcia Procedure CPT: Indications: CP Cardiac Hx: Technical Quality: Technically difficult study Contrast 1: Lumason Total Dose (mL): 5 Contrast 2: Definity Total Dose (mL): 10 MEASUREMENTS (Male / Female) Normal Values 2D ECHO LV Diastolic Diameter PLAX 5.0 cm 4.2 - 5.9 / 3.9 - 5.3 cm LV Systolic Diameter PLAX 3.6 cm IVS Diastolic Thickness 1.5 cm 0.6 - 1.0 / 0.6 - 0.9 cm LVPW Diastolic Thickness 1.1 cm 0.6 - 1.0 / 0.6 - 0.9 cm LV Relative Wall Thickness 0.5 RV Internal Dim ED PLAX 2.6 cm LVOT Diameter 2.2 cm Aortic Root Diameter 3.0 cm LA Systolic Diameter LX 2.9 cm 3.0 - 4.0 / 2.7 - 3.8 cm LV Diastolic Volume MOD BP 32.9 cm??? 67 - 155 / 56 - 104 cm??? LV Systolic Volume MOD BP 7.6 cm??? 22 - 58 / 19 - 49 cm??? LV Ejection Fraction MOD BP 77.0 % >= 55 % LV Diastolic Volume MOD 4C 33.3 cm??? LV Systolic Volume MOD 4C 9.9 cm??? LV Ejection Fraction MOD 4C 70.3 % LV Diastolic Length 4C 6.7 cm LV Systolic Length 4C 5.5 cm LV Diastolic Volume MOD 2C 29.6 cm??? LV Systolic Volume MOD 2C 5.9 cm??? LV Ejection Fraction MOD 2C 80.2 % LV Diastolic Length 2C 6.3 cm LV Systolic Length 2C 5.2 cm LA Volume 51.8 cm??? 18 - 58 / 22 - 52 cm??? DOPPLER AV Peak Velocity 154.0 cm/s AV Peak Gradient 9.5 mmHg LVOT Peak Velocity 96.6 cm/s LVOT Peak Gradient 3.7 mmHg AV Area Cont Eq pk 2.4 cm??? Mitral E Point Velocity 110.1 cm/s Mitral A Point Velocity 104.2 cm/s Mitral E to A Ratio 1.1 MV Deceleration Time 260.1 ms TR Peak Velocity 262.6 cm/s TR Peak Gradient 27.6 mmHg Right Ventricular Systolic Press 32.9 mmHg PV Peak Velocity 98.2 cm/s PV Peak Gradient 3.9 mmHg FINDINGS Left Ventricle Left ventricular ejection fraction is estimated at 60-65 %. Right Ventricle Normal right ventricular size. Right Atrium Normal right atrial size. Left Atrium Normal left atrial size. Mitral Valve Posterior MAC. Trace MR. Aortic Valve Not well visualized. Mild AV calcification. No aortic valve stenosis or regurgitation. Tricuspid Valve Grossly Normal valve structure. Mild TR. RVSP= 36mmhg. Pulmonic Valve Pulmonic valve not well visualized. No pulmonic regurgitation. Pericardium Normal pericardium. Aorta Normal size aortic root and proximal ascending aorta. CONCLUSIONS Normal the systolic function Poorly visualized aortic valve. The aortic valve is sclerotic Mitral annular calcification with mild to moderate MR Previewed by: Dr. Nima Russ MD (Electronically Signed) Final Date: 04 November 2022 09:48
[2022-11-04] MEDS: DULoxetine HCL 60 MG CAPSULE.DR PO SCH (10:38)
[2022-11-04] MEDS: atenoloL 50 MG TAB PO SCH (10:38)
[2022-11-04] MEDS: CHLORTHALIDONE 25 MG TAB PO SCH (10:38)
[2022-11-04] MEDS: ENOXAPARIN 150 MG/ML SYRINGE SQ SCH (10:38)
[2022-11-04] MEDS: DIVALPROEX 250 MG TABLET.DR PO SCH (10:39)
[2022-11-04 11:35] VITALS: BP 126/75; PULSE 76; RESP 18; TEMP 98.1
[2022-11-04 11:44] LABS: Glucose,Whole Blood 164 mg/dL (70-110)
[2022-11-04 12:01] LABS: INR 1.3 (<1.2); Prothrombin Time 13.1 sec (9.0-12.0)
--- NOTE | 2022-11-04 13:22 | PN ---
PROGRESS NOTE DATE OF SERVICE: 11/04/2022 SUBJECTIVE: This 77-year-old woman, who was admitted after left shoulder arthroplasty, had some weakness yesterday. Dr. Jones is recommending full workup. The D-dimer is pending at this time. 2D echo showed normal systolic function. No fever. No cough. OBJECTIVE: VITAL SIGNS: Pulse is 76, blood pressure n, respirations 18. CHEST: Clear to auscultation. Left shoulder arthroplasty. LABORATORY DATA: Reviewed. D-dimer is 1. ASSESSMENT: 1. Status post left shoulder arthroplasty. 2. History of pulmonary embolism and deep venous thrombosis. 3. Diabetes mellitus, type 2. 4. Lovenox bridging. 5. Hypertension. 6. Hyperlipidemia. 7. History of elevated D-dimer. RECOMMENDATIONS: I would recommend to continue current management. recommend CT angio of the chest and continue to monitor. Further recommendations to follow. MMODL / IJN: [id number] / MTDD
--- NOTE | 2022-11-04 14:08 | P.PN ---
Subjective Progress Note Date: 11/04/22 HISTORY OF PRESENT ILLNESS: This is a 77-year-old female with a past medical history significant for DVT/PE, hypertension, hyperlipidemia, hypothyroidism, diabetes, and seizure disorder. We have been asked to see the patient in consultation for atrial fibrillation. Patient examined at the bedside in the preoperative area. Patient is scheduled to undergo left total shoulder replacement today with Dr. Sanchez. Preoperative EKG performed revealing atrial fibrillation. The patient denies a history of atrial fibrillation. Her rates are controlled. She denies chest pain or pressure. Denies SOB. Denies for patient. Denies dizziness or lightheadedness. She states she had a stress test that was performed recently which was negative to her knowledge. She states that she obtained cardiac clearance from her supervisor sewing room, Dr. Roldan in [place]. 11/03 The patient was seen and evaluated today. The surgery went well. She was seen this morning beach she is asymptomatic and hemodynamically stable and she is in normal sinus mechanism. The examination is remarkable for stable vital signs with a regular rate and rhythm and clear breathing sounds bilaterally and no lower extremity is edema noted From the cardiovascular standpoint of view, we'll continue the current medical regimen. The patient can follow-up with her supervisor sewing room as an outpatient. She to be on anticoagulation 11/04 Patient is seen today in follow-up. She gives history that at home she had 2 episodes where she had a panic attack one was in her car and one at home. When she has panic attack she seems to have some shortness of breath develops as well as chest pressure. She states she has been feeling great until she was taken do wn to have a CAT scan of the chest done as her d-dimer was elevated. They were unable to obtain IV access and made multiple attempts. She is complaining of left shoulder pain. Echocardiogram reveals EF of 60-65%. Aortic valve is sclerotic. Mitral annular calcification with mild to moderate MR. PHYSICAL EXAM: VITAL SIGNS: Reviewed. GENERAL: Well-developed in no acute distress. HEENT: Head is normocephalic. Pupils are equal, round. Sclerae anicteric. Mucous membranes of the mouth are moist. Neck supple. No JVD or thyromegaly LUNGS: Respirations even and unlabored. Lungs essentially clear to auscultation bilaterally. HEART: Irregular rate and rhythm. S1 and S2 heard. ABDOMEN: Soft. Nondistended. Nontender. EXTREMITIES: Normal range of motion. No clubbing or cyanosis. Peripheral puls es intact. Dressing and shoulder immobilizer to the left arm NEUROLOGIC: Awake and alert. Oriented x 3. ASSESSMENT: Osteoarthritis, status post left total shoulder replacement New-onset atrial fibrillation with controlled ventricular rates, duration unknown, paroxysmal History of DVT/PE, on warfarin outpatient Hypertension Hyperlipidemia Hypothyroidism Diabetes Seizure disorder PLAN: Recommend that CTA be canceled. Patient has been on anticoagulation and is on Lovenox for bridging. Reviewed echocardiogram results with the patient. Patient may follow-up with her supervisor sewing room as an outpatient for outpatient stress testing. Nurse practitioner note has been reviewed, I agree with the documented findings and plan of care. Patient was seen and examined. Objective - Vital Signs Vital signs: Vital Signs Temp 98.1 F 11/04/22 08:00 Pulse 76 11/04/22 08:00 Resp 18 11/04/22 08:00 BP 126/75 11/04/22 08:00 Pulse Ox 95 11/04/22 08:00 FiO2 Intake & Output 11/03/22 11/04/22 11/04/22 18:59 06:59 18:59 Intake Total 602 500 8816 Balance 051 514 2411 Intake: Oral 143 196 7735 - Labs CBC & Chem 7: 11/03/22 08:40 11/03/22 08:40 Labs: Abnormal Lab Results - Last 24 Hours (Table) 11/03/22 11/03/22 11/03/22 Range/Units 12:47 16:38 20:15 PT (9.0-12.0) sec INR (<1.2) D-Dimer (<0.60) mg/L FEU POC Glucose (mg/dL) 214 H 222 H (70-110) mg/dL CK-MB (CK-2) 14.8 H (0.0-2.4) ng/mL 11/04/22 11/04/22 11/04/22 Range/Units 06:11 11:15 11:42 PT 13.1 H (9.0-12.0) sec INR 1.3 H (<1.2) D-Dimer 1.00 H (<0.60) mg/L FEU POC Glucose (mg/dL) 171 H 164 H (70-110) mg/dL CK-MB (CK-2) (0.0-2.4) ng/mL
--- NOTE | 2022-11-04 16:06 | P.DS ---
Providers Expected date of discharge: 11/04/22 Attending physician: Nataliia Sanchez DO Consults: 11/02/22 12:26 Consult Physician Urgent Consulting Provider: Janes Hackett Consult Reason/Comments: NEW ONSET AFIB Do you want consulting provider notified?: Yes 11/02/22 13:43 Consult Physician Routine Consulting Provider: Tammy Zheng Consult Reason/Comments: medical management Do you want consulting provider notified?: Yes Primary care physician: Joselin Wells - Discharge Diagnosis(es) (1) Primary osteoarthritis, left shoulder Current Visit: Yes Status: Acute (2) Status post reverse arthroplasty of left shoulder Current Visit: Yes Status: Acute (3) History of pulmonary embolism Current Visit: Yes Status: Acute (4) Hypertension Current Visit: Yes Status: Acute (5) Hyperlipidemia Current Visit: Yes Status: Acute (6) Diabetes mellitus Current Visit: Yes Status: Acute Hospital Course: This is a 77-year-old female who has history of severe degenerative arthritis of the left shoulder and presented to discuss surgical options. After discussion and consideration the patient elects to proceed with reverse total shoulder arthroplasty. The patient is seen preoperatively by their family physician and cardiology and cleared for surgery. The patient is admitted to [facility] on 11/02/2022 for left reverse total shoulder arthroplasty. She is doing well postoperatively. Vital signs and hemoglobin are stable. The patient is able to get up out of bed independently and is ambulating without assistance. Pain is well controlled. She did have A.fib in pre-op and was seen by Cardiology. She did have an episode of aphasia and left sided chest pain yesterday afternoon. Her discharge was held and she was transferred to the telemetry unit. An Echo was completed and a CTA was ordered but not completed due to inability to obtain an IV for contrast. Her d-dimer was mildly elevated. Today, the patient is in normal sinus rhythm. She will continue her normal dose of Coumadin with Lovenox bridging. Patient is discharged to home on postoperative day #2 in stable condition. Please see med rec for accurate list of home medications. Pertinent Studies: Laboratory Tests 11/03/22 11/04/22 08:40 11:15 WBC 8.3 RBC 3.79 L Hgb 10.2 L Hct 31.4 L PT 13.1 H INR 1.3 H D-Dimer 1.00 H Patient Condition at Discharge: Stable Plan - Discharge Summary Discharge Rx Participant: No New Discharge Prescriptions: New Sennosides-Docusate Sodium [Senokot-S] 2 tab PO DAILY #30 tablet oxyCODONE HCL/ACETAMINOPHEN [Percocet 5-325 mg] 1 tab PO Q4-6H PRN #30 tab PRN Reason: Pain Enoxaparin [Lovenox] 150 mg SQ DAILY 4 Days #4 each Continue Levothyroxine Sodium [Synthroid] 137 mcg PO DAILY Insulin Detemir (Levemir) [Levemir] 26 unit SQ HS Atenolol/Chlorthalidone [Atenolol-Chlorthalidone 50-25] 1 each PO DAILY Atorvastatin [Lipitor] 20 mg PO HS Divalproex [Depakote] 250 mg PO BID QUEtiapine [SEROquel] 100 mg PO HS DULoxetine HCL [Cymbalta] 60 mg PO DAILY Omeprazole [PriLOSEC] 20 mg PO AC-BRKFST Warfarin [Coumadin] 7.5 mg PO HS HYDROcodone/APAP 7.5-325MG [[place] 7.5-325] 1 tab PO Q8H PRN PRN Reason: Pain Discharge Medication List Atenolol/Chlorthalidone [Atenolol-Chlorthalidone 50-25] 1 each PO DAILY 10/08/14 [History] Atorvastatin [Lipitor] 20 mg PO HS 10/08/14 [History] Divalproex [Depakote] 250 mg PO BID 10/08/14 [History] Insulin Detemir (Levemir) [Levemir] 26 unit SQ HS 10/08/14 [History] Levothyroxine Sodium [Synthroid] 137 mcg PO DAILY 10/08/14 [History] QUEtiapine [SEROquel] 100 mg PO HS 10/08/14 [History] DULoxetine HCL [Cymbalta] 60 mg PO DAILY 10/30/22 [History] HYDROcodone/APAP 7.5-325MG [[place] 7.5-325] 1 tab PO Q8H PRN 10/30/22 [History] Omeprazole [PriLOSEC] 20 mg PO AC-BRKFST 10/30/22 [History] Warfarin [Coumadin] 7.5 mg PO HS 10/30/22 [History] Sennosides-Docusate Sodium [Senokot-S] 2 tab PO DAILY #30 tablet 11/02/22 [Rx] Enoxaparin [Lovenox] 150 mg SQ DAILY 4 Days #4 each 11/03/22 [Rx] oxyCODONE HCL/ACETAMINOPHEN [Percocet 5-325 mg] 1 tab PO Q4-6H PRN #30 tab 11/03/22 [Rx] Follow up Appointment(s)/Referral(s): Malinda Fraser NPC [Nurse Practitioner] - 11/16/22 1:00 pm Joselin Wells DO [Primary Care Provider] - 3 Days (office busy Please call to schedule appointment) Ambulatory/Diagnostic Orders: Prothrombin Time INR [LAB.AMB] Time Frame: 3 Days, Location: None Selected Activity/Diet/Wound Care/Special Instructions: Keep Optifoam dressing on for 1 week. Remove dressing after 1 week. No dressing needed after. May shower with dressing on. Arm sling for comfort. Apply ice to the shoulder. Follow up with Malinda Fraser NP in 2 weeks. Recommend repeat PT/INR in 2-3 days and continue with Lovenox subcutaneous injections daily until INR is therapeutic Discharge Disposition: HOME SELF-CARE
[2022-11-04 16:43] LABS: Glucose,Whole Blood 173 mg/dL (70-110)
== END 2022-11-04 18:40 | disposition home or self-care (01) ==
LOC: OR 09:53 → 4SSUR 15:55 → 3SCARD 11-03 14:45 → OR 11-04 18:40
PROVIDERS: ATTEND Orthopaedic Surgery Hand Surgery
DX: M19.012 Primary osteoarthritis, left shoulder (principal); I48.91 Unspecified atrial fibrillation; E11.9 Type 2 diabetes mellitus without complications; E03.9 Hypothyroidism, unspecified; I10 Essential (primary) hypertension; E78.5 Hyperlipidemia, unspecified; F39 Unspecified mood [affective] disorder; M10.9 Gout, unspecified; Z87.891 Personal history of nicotine dependence; Z96.651 Presence of right artificial knee joint; Z86.718 Personal history of other venous thrombosis and embolism; Z91.040 Latex allergy status; Z91.030 Bee allergy status; Z91.048 Other nonmedicinal substance allergy status; Z79.01 Long term (current) use of anticoagulants; Z79.4 Long term (current) use of insulin; Z79.890 Hormone replacement therapy; Z79.899 Other long term (current) drug therapy; Z79.52 Long term (current) use of systemic steroids; Z91.09 Other allergy status, other than to drugs and biological substances; G89.18 Other acute postprocedural pain
CPT/HCPCS: 23472; 64415; 85379; 80048; 82553; 84484; 85025; 85610 ×3; 73020; C8929; C1776; J2250; J3370; J0330; J1100; J2710; J0690 ×2; J2405; J3010; J1650 ×2; J2795; J2370; J2704; J1170; Q9950; J2001; 93306

== ENCOUNTER 2023-08-11 15:36 | Emergency (ER) | payer MEDICARE ==
--- NOTE | 2023-08-11 16:14 | ED ---
Chest Pain HPI - General Chief Complaint: Chest Pain Stated Complaint: cardio-sent by PCP Time Seen by Provider: 08/11/23 16:01 Source: patient, RN notes reviewed, old records reviewed Mode of arrival: ambulatory Limitations: no limitations - History of Present Illness Initial Comments: This is a 78-year-old female to the ER for evaluation today. Patient is coming in for nonspecific complaints including shortness of breath chest pain not feeling well weakness. Persistent complaints of episodic chest pain multiple times a day with cold feeling over her entire body sweats tightness tightness in her chest and shortness of breath. Patient has a long medical history and states the symptoms been going on for quite some time with multiple evaluations by electronic imaging system operator her primary care as well which has now sent her to the emergency department for more for further evaluation MD Complaint: chest pain -: days(s) Onset: during rest, during exertion Pain Location: substernal, left chest Pain Radiation: none Severity: moderate Severity scale (1-10): 4 Consistency: intermittent, now resolved Improves With: nothing Worsens With: nothing Other Symptoms: palpitations Treatments Prior to Arrival: none - Related Data Home Medications Medication Instructions Recorded Confirmed Atenolol/Chlorthalidone 1 tab PO DAILY 10/08/14 08/11/23 [Atenolol-Chlorthalidone 50-25] Levothyroxine Sodium [Synthroid] 137 mcg PO DAILY 10/08/14 08/11/23 QUEtiapine [SEROquel] 100 mg PO HS 10/08/14 08/11/23 DULoxetine HCL [Cymbalta] 60 mg PO DAILY 10/30/22 08/11/23 HYDROcodone/APAP 7.5-325MG [[place] 1 tab PO Q8H PRN 10/30/22 08/11/23 7.5-325] Omeprazole [PriLOSEC] 20 mg PO DAILY 10/30/22 08/11/23 Apixaban [Eliquis] 5 mg PO BID 08/11/23 08/11/23 Divalproex ER [Depakote ER] 250 mg PO BID 08/11/23 08/11/23 Insulin Glargine,Hum.rec.anlog 26 units SQ HS 08/11/23 08/11/23 [Lantus Solostar Pen] Nystatin 100,000Unit/gm Cream 1 applic TOPICAL BID PRN 08/11/23 08/11/23 [Mycostatin Cream] Allergies Allergy/AdvReac Type Severity Reaction Status Date / Time adhesive Allergy swelling,rash Verified 08/11/23 19:18 to surgical adhesive Horse/Equine Containing Allergy Unknown Verified 08/11/23 19:18 Products venom-honey bee Allergy Swelling Verified 08/11/23 19:18 [bee venom (honey bee)] Review of Systems ROS Statement: Those systems with pertinent positive or pertinent negative responses have been documented in the HPI. ROS Other: All systems not noted in ROS Statement are negative. EKG Findings - EKG Comments: EKG Findings:: EKG is sinus 70 MO 218 QRS 106 QTc 436 Past Medical History Past Medical History: Diabetes Mellitus, Deep Vein Thrombosis (DVT), GI Bleed, Hyperlipidemia, Hypertension, Myocardial Infarction ([place]), Musculoskeletal Disorder, Neurologic Disorder, Osteoarthritis (OA), Pulmonary Embolus (PE), Thyroid Disorder Additional Past Medical History / Comment(s): NECK PAINS, mi 10-08-14, dvt lt leg, bladder infection, pancreatitis,fell around [place] time.MIGRAINES, VERTIGO, MENIERES DISEASE, DIVERTICULITIS, Last Myocardial Infarction Date:: 10-08-14 History of Any Multi-Drug Resistant Organisms: None Reported Past Surgical History: Heart Catheterization Additional Past Surgical History / Comment(s): agus filter removed, CATARACTS-LENS IMPLANTS, BREAST REDUCTION, RT KNEE REPLACEMENT, 2 TUMORS REMOVED FROM RT LEG ,LT EYE SOCKET TUMOR REMOVED.HEMORRHIODECTOMY, RHIZOTOMY Past Anesthesia/Blood Transfusion Reactions: No Reported Reaction, Motion Sickness Additional Past Anesthesia/Blood Transfusion Reaction / Comment(s): limited ROM neck Past Psychological History: Anxiety, Panic Disorder Smoking Status: Former smoker Past Alcohol Use History: None Reported Past Drug Use History: None Reported - Past Family History Father Family Medical History: Cancer, Thyroid Disorder Additional Family Medical History / Comment(s): Liver CA Mother Family Medical History: Thyroid Disorder Sister(s) Family Medical History: Cancer Additional Family Medical History / Comment(s): Throat CA General Exam Limitations: no limitations General appearance: alert, in no apparent distress Head exam: Present: atraumatic, normocephalic, normal inspection Eye exam: Present: normal appearance, PERRL, EOMI. Absent: scleral icterus, conjunctival injection, periorbital swelling ENT exam: Present: normal exam, mucous membranes moist Neck exam: Present: normal inspection. Absent: tenderness, meningismus, lymphadenopathy Respiratory exam: Present: normal lung sounds bilaterally. Absent: respiratory distress, wheezes, rales, rhonchi, stridor Cardiovascular Exam: Present: regular rate, normal rhythm, normal heart sounds. Absent: systolic murmur, diastolic murmur, rubs, gallop, clicks GI/Abdominal exam: Present: soft, normal bowel sounds. Absent: distended, tenderness, guarding, rebound, rigid Extremities exam: Present: normal inspection, full ROM, normal capillary refill. Absent: tenderness, pedal edema, joint swelling, calf tenderness Back exam: Present: normal inspection Neurological exam: Present: alert, oriented X3, CN II-XII intact Psychiatric exam: Present: normal affect, normal mood Skin exam: Present: warm, dry, intact, normal color. Absent: rash Course Vital Signs 08/11/23 08/11/23 15:53 19:17 Temperature 98.8 F Pulse Rate 78 66 Respiratory 16 16 Rate Blood Pressure 171/103 142/74 O2 Sat by Pulse 98 99 Oximetry - Reevaluation(s) Reevaluation #1: 08/11/23 17:09 Medical records reviewed Reevaluation #2: 08/11/23 17:10 Patient has no current chest pain and arrived with no symptoms Studies Chest x-ray CTA chest negative for acute disease Reevaluation #3: Patient informed of results questions answered Reevaluation #4: Was pt. sent in by a medical professional or institution (, PA, HEARING THERAPY DIRECTOR, urgent care, hospital, or prison...) When possible be specific @ -no Did you speak to anyone other than the patient for history (EMS, parent, family, police, friend...)? What history was obtained from this source @ -no Did you review nursing and triage notes (agree or disagree)? Why? @ -agree Are old charts reviewed (outside hosp., previous admission, EMS record, old EKG, old radiological studies, urgent care reports/EKG's, prison records)? Report findings @ -yes Differential Diagnosis (chest pain, altered mental status, abdominal pain women, abdominal pain men, vaginal bleeding, weakness, fever, dyspnea, syncope, headache, dizziness, GI bleed, back pain, seizure, CVA, palpatations, mental health, musculoskeletal)? @ -prior EKG interpreted by me (3pts min.). @ -yes X-rays interpreted by me (1pt min.). @ -yes negative for acute disease CT interpreted by me (1pt min.). @ -Yes negative for acute disease U/S interpreted by me (1pt. min.). @ -no What testing was considered but not performed or refused? (CT, X-rays, U/S, labs)? Why? @ -none What meds were considered but not given or refused? Why? @ -none Did you discuss the management of the patient with other professionals (eliane cabrera i.e. , PA, HEARING THERAPY DIRECTOR, lab, RT, psych nurse, home health care social worker, claims adjuster, teacher, public records officer, case management manager)? Give summary @ -no Was smoking cessation discussed for >3mins.? @ -no Was critical care preformed (if so, how long)? @ -no Were there social determinants of health that impacted care today? How? (Homelessness, low income, unemployed, alcoholism, drug addiction, transportation, low edu. Level, literacy, decrease access to med. care, nursing home, rehab)? @ -none Was there de-escalation of care discussed even if they declined (Discuss DNR or withdrawal of care, Hospice)? DNR status @ -no What co-morbidities impacted this encounter? (DM, HTN, Smoking, COPD, CAD, Cancer, CVA, ARF, Chemo, Hep., AIDS, mental health diagnosis, sleep apnea, morbid obesity)? @ -none Was patient admitted / discharged? Hospital course, mention meds given and route, prescriptions, significant lab abnormalities, going to OR and other pertinent info. @ - 78 female with near syncopal event prior to arrival. Patient without complaint here in the ER no headache chest pain shortness of breath or abdominal pain. Patient has no symptoms of syncope currently. Patient is able to ambulate and change positions without feeling lightheaded or dizzy. Patient will be discharged home Discharge Undiagnosed new problem with uncertain prognosis? @ -no Drug Therapy requiring intensive monitoring for toxicity (Heparin, Nitro, Insulin, Cardizem)? @ -no Were any procedures done? @ -no Diagnosis/symptom? @ -Near syncope Acute, or Chronic, or Acute on Chronic? @ -Acute Uncomplicated (without systemic symptoms) or Complicated (systemic symptoms)? @ -Complicated Side effects of treatment? @ -no Exacerbation, Progression, or Severe Exacerbation? @ -exacerbation Poses a threat to life or bodily function? How? (Chest pain, [place], [place], pneumonia, PE, COPD, DKA, ARF, appy, cholecystitis, CVA, Diverticulitis, Homicidal, Suicidal, threat to staff... and all critical care pts) @ -yes yes with cause of syncope Reevaluation #5: Differential Chest Pain: Stable Angina, Unstable Angina, STEMI, NSTEMI Aortic Dissection, Pneumothorax, Musculoskeletal, Esophageal Spasm GERD, Cholecystitis, Pancreatitis, Zoster, this is not meant to be an all-inclusive list. Chest Pain MDM - MDM 78 female with near syncopal event prior to arrival. Patient without complaint here in the ER no headache chest pain shortness of breath or abdominal pain. Patient has no symptoms of syncope currently. Patient is able to ambulate and change positions without feeling lightheaded or dizzy. Patient will be discharged home Disposition Clinical Impression: Near syncope Disposition: HOME SELF-CARE Condition: Good Instructions (If sedation given, give patient instructions): Near Syncope (ED) Is patient prescribed a controlled substance at d/c from ED?: No Referrals: Joselin Wells DO [Primary Care Provider] - 1-2 days Time of Disposition: 19:40
[2023-08-11 16:22] VITALS: RESP 16; TEMP 98.8
[2023-08-11 17:05] LABS: Basophils % (A) 1 %; Eosinophils % (A) 0 %; HCT 35.9 % (34.0-46.0); HGB 11.7 gm/dL (11.4-16.0); Lymphocytes # (A) 1.5 k/uL (1.0-4.8); Lymphocytes % (A) 18 %; MCH 24.7 pg (25.0-35.0); MCHC 32.5 g/dL (31.0-37.0); Mean Platelet Volume 7.6; Microcytosis Slight; Monocytes # (A) 0.8 k/uL (0-1.0); Monocytes % (A) 9 %; Neutrophils # (A) 6.3 k/uL (1.3-7.7); Neutrophils % (A) 71 %; Platelet Count 345 k/uL (150-450); RBC 4.73 m/uL (3.80-5.40); RDW 15.1 % (11.5-15.5); WBC 8.8 k/uL (3.8-10.6)
[2023-08-11 17:14] LABS: Partial Thromboplastin Time 23.5 sec (22.0-30.0)
[2023-08-11 17:26] LABS: ALT 16 U/L (4-34); AST 23 U/L (14-36); African American GFR (CKD) 90 (>60 ml/min/1.73 sqM); Albumin 4.5 g/dL (3.5-5.0); Alkaline Phosphatase 109 U/L (38-126); Anion Gap 18 mmol/L; Blood Urea Nitrogen 20 mg/dL (7-17); Calcium 10.5 mg/dL (8.4-10.2); Carbon Dioxide 20 mmol/L (22-30); Chloride 99 mmol/L (98-107); Glucose 154 mg/dL (74-99); Lipase 185 U/L (23-300); Magnesium 1.4 mg/dL (1.6-2.3); Non-African American GFR(CKD) 78 (>60 ml/min/1.73 sqM); Potassium 3.7 mmol/L (3.5-5.1); Sodium 137 mmol/L (137-145); Total Bilirubin 0.9 mg/dL (0.2-1.3); Total Protein 7.8 g/dL (6.3-8.2)
[2023-08-11 17:30] LABS: NT-Pro-B-Type Natriuretic Pept 154 pg/mL
--- NOTE | 2023-08-11 17:52 | XR ---
EXAMINATION TYPE: XR chest 1V portable DATE OF EXAM: 08/11/2023 5:17 PM CLINICAL INDICATION:Female, 78 years old with history of chest pain; [facility] COMPARISON: Chest radiographs from 11/13/2014. TECHNIQUE: XR chest 1V portable Frontal view of the chest. FINDINGS: Lungs/Pleura: There is no evidence of pleural effusion, focal consolidation, or pneumothorax. Pulmonary vascularity: Unremarkable. Heart/mediastinum: Cardiomediastinal silhouette is unremarkable. Musculoskeletal: No acute osseous pathology. Shoulder arthroplasty. Hardware appears intact. IMPRESSION: No acute cardiopulmonary disease/process.
--- NOTE | 2023-08-11 18:28 | CT ---
EXAMINATION TYPE: CT angio chest CT DLP: 479 mGycm, Automated exposure control for dose reduction was used. DATE OF EXAM: 08/11/2023 6:01 PM COMPARISON: Chest radiograph from same day. CLINICAL INDICATION:Female, 78 years old with history of cp; SOB. Hx of PE's. TECHNIQUE/CONTRAST: CTA scan of the thorax is performed with IV Contrast, patient injected with 100 ml mL of Isovue 370, MIP images are created and reviewed these are created on a separate workstation.. FINDINGS: Pulmonary Artery: There is no evidence for a filling defect within the pulmonary vasculature to sugge st acute pulmonary embolism. The pulmonary artery is of normal size. Lungs/Pleura: No evidence of focal consolidation, pleural effusion or pneumothorax. Right middle lobe 4 mm pulmonary nodule series 403 image 53 Airway: Large airways are patent. Heart: Heart is within normal limits for size. Vasculature: No evidence of aortic aneurysm. Mediastinum: No gross evidence of adenopathy. Musculoskeletal: No acute osseous abnormalities Soft Tissues: Unremarkable. Lower neck: No significant findings. Upper Abdomen: Gallbladder surgically absent. IMPRESSION: 1. No evidence of pulmonary embolism. 2. Right middle lobe 4 mm pulmonary nodule. Consider annual low-dose lung cancer screening. Follow up recommendations for incidental pulmonary nodules, if there are any, are per [employer]s [place] [employer] [employer] or [employer]. https://radiopaedia.org/articles/vuxkpdfrzc-neuvqxe-agkkqjixu-wsedka-[email or web address]?lang=us
[2023-08-11 19:28] VITALS: BP 142/74; PULSE 66
[2023-08-11] MEDS: MAGNESIUM OXIDE 400 MG TAB PO STA ×2 (19:52→19:53)
== END 2023-08-11 19:59 | disposition home or self-care (01) ==
LOC: EC 15:36
DX: R55 Syncope and collapse (principal); Z91.030 Bee allergy status; Z91.048 Other nonmedicinal substance allergy status; Z87.891 Personal history of nicotine dependence
CPT/HCPCS: 36415; 93005; 83880; 80053; 83690; 83735; 84484; 85025; 85610; 85730; 71045; 71275; 99285; Q9967

== ENCOUNTER 2024-05-15 11:38 | Emergency (ER) | payer MEDICARE ==
[2024-05-15 11:50] VITALS: RESP 20
--- NOTE | 2024-05-15 11:51 | ED ---
Chest Pain HPI - General Source: patient, RN notes reviewed Mode of arrival: ambulatory Limitations: no limitations - History of Present Illness MD Complaint: chest pain <Viktoriya Barnes - Last Filed: 05/15/24 11:50> - General Source: patient, RN notes reviewed Limitations: no limitations <Montez Sullivan - Last Filed: 05/15/24 13:48> - General Chief Complaint: Chest Pain Stated Complaint: chest pain/post op Time Seen by Provider: 05/15/24 11:45 - History of Present Illness Initial Comments: Quick Note: This is a 78-year-old female who presents to the emergency department for chest pain. Patient just had a Watchman device put in and then started to experience pain in her chest. She called her physical fitness teacher who advised she come here for an x-ray to ensure the device has not shifted. States that she also has problems with her shoulders and wonders if the pain may be related to that. (Viktoriya Barnes) Patient is a 78-year-old female present to the emergency department with chest discomfort. Patient states she did have Watchman device placed 3 days ago. Patient has had constant discomfort since that time. Patient called the office and the nurse told her to have an x-ray and EKG. Patient also has chronic shoulder problems and questions if the discomfort is related to that. Discomfort is somewhat sharp and does increase with movement. No shortness of breath. Procedure was done by a physical fitness teacher out of a different facility. Patient is seen in the waiting room secondary to no beds available. (Montez Sullivan) - Related Data Home Medications Medication Instructions Recorded Confirmed Atenolol/Chlorthalidone 1 tab PO DAILY 10/08/14 08/11/23 [Atenolol-Chlorthalidone 50-25] Levothyroxine Sodium [Synthroid] 137 mcg PO DAILY 10/08/14 08/11/23 QUEtiapine [SEROquel] 100 mg PO HS 10/08/14 08/11/23 DULoxetine HCL [Cymbalta] 60 mg PO DAILY 10/30/22 08/11/23 HYDROcodone/APAP 7.5-325MG [[place] 1 tab PO Q8H PRN 10/30/22 08/11/23 7.5-325] Omeprazole [PriLOSEC] 20 mg PO DAILY 10/30/22 08/11/23 Apixaban [Eliquis] 5 mg PO BID 08/11/23 08/11/23 Divalproex ER [Depakote ER] 250 mg PO BID 08/11/23 08/11/23 Insulin Glargine,Hum.rec.anlog 26 units SQ HS 08/11/23 08/11/23 [Lantus Solostar Pen] Nystatin 100,000Unit/gm Cream 1 applic TOPICAL BID PRN 08/11/23 08/11/23 [Mycostatin Cream] Allergies Allergy/AdvReac Type Severity Reaction Status Date / Time adhesive Allergy swelling,rash Verified 05/15/24 11:50 to surgical adhesive Horse/Equine Containing Allergy Unknown Verified 05/15/24 11:50 Products venom-honey bee Allergy Swelling Verified 05/15/24 11:50 [bee venom (honey bee)] Review of Systems ROS Other: All systems not noted in ROS Statement are negative. <Viktoriya Barnes - Last Filed: 05/15/24 11:50> ROS Other: All systems not noted in ROS Statement are negative. Constitutional: Denies: fever Eyes: Denies: eye pain ENT: Denies: ear pain Respiratory: Denies: cough, dyspnea Cardiovascular: Reports: as per HPI, chest pain Endocrine: Denies: fatigue Gastrointestinal: Denies: abdominal pain <Montez Sullivan - Last Filed: 05/15/24 13:48> ROS Statement: Those systems with pertinent positive or pertinent negative responses have been documented in the HPI. EKG Findings - EKG Results: EKG: interpreted by ERMD, sinus rhythm, normal axis, normal QRS, normal ST/T EKG shows: bradycardia <Montez Sullivan - Last Filed: 05/15/24 13:48> Past Medical History Past Medical History: Diabetes Mellitus, Deep Vein Thrombosis (DVT), GI Bleed, Hyperlipidemia, Hypertension, Myocardial Infarction (MO), Musculoskeletal Disorder, Neurologic Disorder, Osteoarthritis (OA), Pulmonary Embolus (PE), Thyroid Disorder Additional Past Medical History / Comment(s): NECK PAINS, mi 10-08-14, dvt lt leg, bladder infection, pancreatitis,fell around [place] time.MIGRAINES, VERTIGO, MENIERES DISEASE, DIVERTICULITIS, Last Myocardial Infarction Date:: 10-08-14 History of Any Multi-Drug Resistant Organisms: None Reported Past Surgical History: Heart Catheterization Additional Past Surgical History / Comment(s): agus filter removed, CATARACTS-LENS IMPLANTS, BREAST REDUCTION, RT KNEE REPLACEMENT, 2 TUMORS REMOVED FROM RT LEG ,LT EYE SOCKET TUMOR REMOVED.HEMORRHIODECTOMY, RHIZOTOMY Past Anesthesia/Blood Transfusion Reactions: No Reported Reaction, Motion Sickness Additional Past Anesthesia/Blood Transfusion Reaction / Comment(s): limited ROM neck Past Psychological History: Anxiety, Panic Disorder Smoking Status: Former smoker Past Alcohol Use History: None Reported Past Drug Use History: None Reported - Past Family History Father Family Medical History: Cancer, Thyroid Disorder Additional Family Medical History / Comment(s): Liver CA Mother Family Medical History: Thyroid Disorder Sister(s) Family Medical History: Cancer Additional Family Medical History / Comment(s): Throat CA <Viktoriya Barnes - Last Filed: 05/15/24 11:50> General Exam <Viktoriya Barnes - Last Filed: 05/15/24 11:50> Limitations: no limitations General appearance: alert, in no apparent distress Head exam: Present: normocephalic Eye exam: Present: normal appearance ENT exam: Present: normal oropharynx Neck exam: Present: normal inspection Respiratory exam: Present: normal lung sounds bilaterally, chest wall tenderness (Patient does have anterior chest wall discomfort, mostly in the right sternal region) Cardiovascular Exam: Present: regular rate, normal rhythm, normal heart sounds Expanded Peripheral pulses: 2+: Radial (R), Radial (L), Posterior Tibialis (R), Posterior Tibialis (L) GI/Abdominal exam: Present: soft. Absent: tenderness Extremities exam: Present: normal inspection. Absent: pedal edema, calf tenderness Neurological exam: Present: alert Psychiatric exam: Present: normal affect, normal mood Skin exam: Present: normal color <Montez Sullivan - Last Filed: 05/15/24 13:48> - General Exam Comments Initial Comments: Visual Physical Exam Vital signs reviewed General: Well-appearing, nontoxic, no acute distress. Head: Normocephalic, atraumatic Eyes: PERRLA, EOMI ENT: Airway patent Chest: Nonlabored breathing Skin: No visual rash, normal skin tone Neuro: Alert and oriented 3 Musculoskeletal: No gross abnormalities (Viktoriya Barnes) Course Vital Signs 05/15/24 11:48 Temperature 97.5 F L Pulse Rate 66 Respiratory 20 Rate Blood Pressure 144/110 O2 Sat by Pulse 100 Oximetry Chest Pain MDM <Viktoriya Barnes - Last Filed: 05/15/24 11:50> <Montez Sulliavn - Last Filed: 05/15/24 13:48> - MDM I performed the QuickNote portion of this chart. Signed Viktoriya Barnes PA-C. (Viktoriya Barnes) Was pt. sent in by a medical professional or institution ([facility], [facility], urgent care, hospital, or fdc...) When possible be specific @ -[Patient was advised by nurse at the doctor's office to have a chest x-ray did you speak to anyone other than the patient for history (EMS, parent, family, police, friend...)? What history was obtained from this source @ -No Did you review nursing and triage notes (agree or disagree)? Why? @ -I reviewed and agree with nursing and triage notes Were old charts reviewed (outside hosp., previous admission, EMS record, old EKG, old radiological studies, urgent care reports/EKG's, fdc records)? Report findings @ -No old charts were reviewed Differential Diagnosis (chest pain, altered mental status, abdominal pain women, abdominal pain men, vaginal bleeding, weakness, fever, dyspnea, syncope, headache, dizziness, GI bleed, back pain, seizure, CVA, palpatations, mental health, musculoskeletal)? @ -Differential Chest Pain: Stable Angina, Unstable Angina, STEMI, NSTEMI Aortic Dissection, Pneumothorax, Musculoskeletal, Esophageal Spasm GERD, Cholecystitis, Pancreatitis, Zoster, this is not meant to be an all-inclusive list. EKG interpreted by me (3pts min.). @ -As above X-rays interpreted by me (1pt min.). @ -Chest x-ray does not reveal acute abnormality. CT interpreted by me (1pt min.). @ -None done U/S interpreted by me (1pt. min.). @ -None done What testing was considered but not performed or refused? (CT, X-rays, U/S, labs)? Why? @ -None What meds were considered but not given or refused? Why? @ -None Did you discuss the management of the patient with other professionals (professionals i.e. , PA, [facility], lab, RT, psych nurse, oncology social worker, sales inspector, teacher, disability hearing officer, rn field case manager)? Give summary @ -No Was smoking cessation discussed for >3mins.? @ -No Was critical care preformed (if so, how long)? @ -No Were there social determinants of health that impacted care today? How? (Homelessness, low income, unemployed, alcoholism, drug addiction, transportation, low edu. Level, literacy, decrease access to med. care, long-term, rehab)? @ -No Was there de-escalation of care discussed even if they declined (Discuss DNR or withdrawal of care, Hospice)? DNR status @ -Long discussion had with patient regarding limitations of x-ray and EKG and evaluation of her symptoms. Patient is advised to have further testing including troponin and D-dimer and other blood work. Patient believes that this is not necessary and refuses this. Patient family member is present and in agreement with her. Patient recommended again having testing done however still refuses. Patient demands to be discharged immediately. Patient is updated on results of x-ray and EKG What co-morbidities impacted this encounter? (DM, HTN, Smoking, COPD, CAD, Cancer, CVA, ARF, Chemo, Hep., AIDS, mental health diagnosis, sleep apnea, morbid obesity)? @ -History of cardiac disease Was patient admitted / discharged? Hospital course, mention meds given and route, prescriptions, significant lab abnormalities, going to OR and other pertinent info. @ -Patient presents with pleuritic chest discomfort following Watchman device placement. Evaluation unremarkable. Patient refuses further evaluation and demands immediately discharge. Undiagnosed new problem with uncertain prognosis? @ -No Drug Therapy requiring intensive monitoring for toxicity (Heparin, Nitro, Insulin, Cardizem)? @ -No Were any procedures done? @ -No Diagnosis/symptom? @ -Chest wall pain Acute, or Chronic, or Acute on Chronic? @ -Acute Uncomplicated (without systemic symptoms) or Complicated (systemic symptoms)? @ -Default Side effects of treatment? @ -No Exacerbation, Progression, or Severe Exacerbation? @ -No Poses a threat to life or bodily function? How? (Chest pain, [place], MO, pneumonia, PE, COPD, DKA, ARF, appy, cholecystitis, CVA, Diverticulitis, Homicidal, Suicidal, threat to staff... and all critical care pts) @ -No (Montez Sullivan) Disposition <Viktoriya Barnes - Last Filed: 05/15/24 11:50> Is patient prescribed a controlled substance at d/c from ED?: No Time of Disposition: 13:48 <Montez Sullivan - Last Filed: 05/15/24 13:48> Clinical Impression: Chest wall pain Disposition: HOME SELF-CARE Instructions (If sedation given, give patient instructions): Chest Wall Pain (ED) Additional Instructions: Please follow-up with your primary care physician, your orthopedic doctor and your cardiac doctor in the next day or 2 for recheck. Call your cardiac doctor today for further evaluation. Return for increased pain, difficulty breathing, desire to have further testing done or any other concerns. Please be advised that you were advised to have further evaluation and refused to have this done. Referrals: Joselin Wells DO [Primary Care Provider] - 1-2 days Agustín Edwards MD [STAFF PHYSICIAN] - 1-2 days
--- NOTE | 2024-05-15 12:13 | XR ---
EXAMINATION TYPE: XR chest 2V DATE OF EXAM: 05/15/2024 12:08 PM COMPARISON: 08/11/2023 CLINICAL INDICATION: Female, 78 years old with history of Chest pain, TECHNIQUE: Frontal and lateral views of the chest are obtained. FINDINGS: Hyperinflation compatible COPD. There is no focal air space opacity, pleural effusion, or pneumothorax seen. The cardiac silhouette size is within normal limits. The osseous structures are intact. IMPRESSION: No acute cardiopulmonary process. [facility], , 05/15/2024 12:11 PM
[2024-05-15 14:25] VITALS: BP 140/68; PULSE 67; TEMP 98
== END 2024-05-15 14:23 | disposition home or self-care (01) ==
LOC: EC 11:38
DX: R07.89 Other chest pain (principal); R00.1 Bradycardia, unspecified; I11.9 Hypertensive heart disease without heart failure; I25.10 Atherosclerotic heart disease of native coronary artery without angina pectoris; Z91.09 Other allergy status, other than to drugs and biological substances; Z91.030 Bee allergy status; Z88.8 Allergy status to other drugs, medicaments and biological substances; Z87.891 Personal history of nicotine dependence
CPT/HCPCS: 71046; 93005; 99285

== ENCOUNTER → 2024-05-29 | Outpatient (CLI) | payer MEDICARE ==
--- NOTE | 2024-05-29 13:59 | CT ---
EXAMINATION TYPE: CT shoulder RT wo con CT DLP: 446.7 mGycm, Automated exposure control for dose reduction was used. DATE OF EXAM: 05/29/2024 1:51 PM COMPARISON: Chest radiograph 05/15/2024, CTA chest 08/11/2023 CLINICAL INDICATION:Female, 78 years old with history of M19.011 PRIMARY OSTEOARTHRITIS, RIGHT SHOULD ER; PHH, osteoarthritis TECHNIQUE: Axial images were obtained of the right shoulder without the use of IV contrast. Addition al coronal and sagittal reformatted images and soft tissue and bone window were obtained for review. 3-D reconstruction was created on a separate workstation. FINDINGS: There is no evidence of fracture, subluxation, or dislocation. Osteophytic changes of the r ight shoulder were joint space narrowing and osteophytosis. Small right shoulder joint effusion. Adva nced right AC joint arthropathy with capsular hypertrophy and spurring noted. Findings of calcific te ndinitis involving the supraspinatus and infraspinatus tendons. No significant soft tissue swelling. No focal muscular atrophy or edema is identified. No radiopaque foreign body identified. Calcified me dial scapular bursa noted. Partial visualization of anterior cervical fusion hardware. Multilevel deg enerative changes of the visualized cervical spine. The visualized portions of the lungs are clear. IMPRESSION: 1. No acute fracture or dislocation. 2. Advanced osteophytic changes of the right shoulder. 3. Advanced right AC joint arthropathy. 4. Findings of calcific tendinitis involving the right supraspinatus and infraspinatus tendons. [facility], , 05/29/2024 1:57 PM
== END | disposition home or self-care (01) ==
LOC: RADCTMAIN 12:35
PROVIDERS: ATTEND Orthopaedic Surgery Hand Surgery
DX: M19.011 Primary osteoarthritis, right shoulder (principal); M75.31 Calcific tendinitis of right shoulder

== ENCOUNTER 2024-08-07 13:04 | Day surgery (SDC) | payer MEDICARE ==
[~2024-08-07 13:04] MED LIST changes: -ACETAMINOPHEN TAB 500 MG TAB PO PRN; -GABAPENTIN 300 MG CAP PO PRN; +HYDROmorphone 0.5 MG/0.5 ML SYRINGE IVP PRN; +LIDOCAINE 1% (10MG/ML) FOR IV START INTRADERMA PRN; -MELOXICAM 7.5 MG TAB PO PRN; -ONDANSETRON 4 MG/2 ML VIAL IVP PRN; +TRANEXAMIC 1,000 MG/100ML-NACL 1,000 MG in SALINE 1 100ML.BAG IVPB PRN; +fentaNYL (PF) 50 MCG/ML 2 ML AMP IVP PRN
[2024-08-07 13:49] LABS: Glucose,Whole Blood 74 mg/dL (70-110)
[2024-08-07] MEDS: IV FLUID CONTINUATION 1,000 ML IV ONE (13:52)
[2024-08-07] MEDS: LACTATED RINGERS 1,000 ML IV SCH (13:54)
[2024-08-07] MEDS: ACETAMINOPHEN TAB 500 MG TAB PO PRN (14:00)
[2024-08-07] MEDS: MELOXICAM 7.5 MG TAB PO PRN (14:01)
[2024-08-07] MEDS: DEXAMETHASONE SOD PHOSPHATE 4 MG/ML 1 ML VIAL IV ONE (14:02)
[2024-08-07] MEDS: ONDANSETRON 4 MG/2 ML VIAL IVP PRN (14:02)
[2024-08-07] MEDS: MIDAZOLAM 2 MG/2 ML VIAL IV PRN (14:39)
--- NOTE | 2024-08-07 14:56 | P.ANPRN ---
Procedure Note - Anesthesia - Nerve Block Performed Right Interscalene Single Time Out Performed: Yes ([id number]) Date of Procedure: 08/07/24 Location of Patient: PreOp Indication: Acute Post-Operative Pain, Analgesia, Dx/Pain Location ( right shoulder), Requested by Surgeon Specifically requested for management of pain by DrQuentin: Nataliia Sanchez Sedation Type: Sedate with meaningful contact maintained Preparation: Sterile Prep Position: Supine Catheter: None Needle Types: Pajunk Needle Gauge: 21 Ultrasound used to visualize needle placement: Yes Ultrasound used to observe medication spread: Yes Injectate: 0.5% Ropivacaine (see comment for volume) (30 mL) Blood Aspirated: No Pain Paresthesia on Injection Noted: No Resistance on Injection: Normal Image Stored and Saved: Yes Events: Uneventful and Well Tolerated
[2024-08-07] MEDS ORDERED: GLYCOPYRROLATE 0.2 MG/ML 2 ML VIAL ONE (15:13)
[2024-08-07] MEDS ORDERED: NEOSTIGMINE 1 MG/ML 10 ML VIAL ONE (15:13)
[2024-08-07] MEDS ORDERED: ROCURONIUM 10 MG/ML (5 ML VIAL) IV ONE (15:13)
[2024-08-07] MEDS ORDERED: TRANEXAMIC 1,000 MG/100ML-NACL PREMIX BAG ONE (15:13)
[2024-08-07] MEDS ORDERED: LIDOCAINE 1% INJ 10MG/ML (20 ML MDV) ONE (15:13)
[2024-08-07] MEDS ORDERED: ROPIVACAINE 5 MG/ML 30 ML VIAL ONE (15:13)
[2024-08-07] MEDS ORDERED: PROPOFOL 10 MG/ML 20 ML VIAL IV ONE (15:13)
[2024-08-07] MEDS ORDERED: fentaNYL (PF) 50 MCG/ML 2 ML AMP ONE (15:13)
[2024-08-07] MEDS ORDERED: MIDAZOLAM 2 MG/2 ML VIAL ONE (15:13)
[2024-08-07] MEDS ORDERED: DEXAMETHASONE SOD PHOSPHATE 4 MG/ML 1 ML VIAL ONE (15:13)
[2024-08-07] MEDS ORDERED: SUCCINYLCHOLINE CHLORIDE 200 MG/10 ML VIAL IV ONE (15:13)
[2024-08-07] MEDS ORDERED: WATER FOR INJECTION, STERILE 10 ML VIAL IV ONE (15:13)
[2024-08-07] MEDS ORDERED: PHENYLEPHRINE 10 MG/ML VIAL ONE (15:13)
[2024-08-07] MEDS ORDERED: ePHEDrine 50 MG/ML 1 ML VIAL ONE (15:13)
[2024-08-07] MEDS: LACTATED RINGERS 1,000 ML IV ONE (17:52)
[2024-08-07] MEDS ORDERED: ONDANSETRON 4 MG/2 ML VIAL IVP PRN (18:09)
[2024-08-07] MEDS ORDERED: HYDROmorphone 0.5 MG/0.5 ML SYRINGE IVP PRN ×3 (18:09)
[2024-08-07 18:14] LABS: Glucose,Whole Blood 77 mg/dL (70-110)
--- NOTE | 2024-08-07 20:39 | XR ---
EXAMINATION TYPE: XR shoulder limited RT DATE OF EXAM: 08/07/2024 6:49 PM CLINICAL INDICATION:Female, 79 years old with history of s/p right reverse total shoulder; PHH, pain COMPARISON: CT right shoulder 05/29/2024. TECHNIQUE: XR shoulder limited RT; single frontal projection. FINDINGS: Right shoulder arthroplasty hardware seen. There are some soft tissue swelling and foci of gas in the right shoulder. Visualized portions of the thorax is grossly unremarkable. IMPRESSION: Postsurgical changes of the right shoulder with arthroplasty hardware in place. [facility], , 08/07/2024 8:37 PM
[2024-08-07] MEDS: ONDANSETRON 4 MG/2 ML VIAL IVP ONE (21:32)
--- NOTE | 2024-08-07 22:30 | P.OP ---
Date of Procedure: 08/07/24 Preoperative Diagnosis: Right glenohumeral osteoarthritis Postoperative Diagnosis: same Procedure(s) Performed: Right reverse total shoulder arthroplasty Implants: Cassie Comprehensive Reverse Glenoid - minibaseplate, 36mm glenosphere Humerus - Size 10 mini stem, standard humeral tray, standard PE Anesthesia: CARLYNA, regional Surgeon: Nataliia Sanchez Brim Stitcher #1: Malinda Fraser Estimated Blood Loss (ml): 200 Pathology: none sent Condition: stable Disposition: PACU Indications for Procedure: Patient has long standing pain in the right shoulder due to glenohumeral osteoarthritis. They have failed nonoperative management and would like to proceed with reverse shoulder arthroplasty. Description of Procedure: The patient, operative extremity, and procedure were identified in the preop holding area. After informed consent was obtained, they received a regional block and was brought back to the OR where they positioned in the beach chair position after general anesthesia was induced. All bony and neurovascular structures were well padded. The upper extremity was then prepped and draped in normal sterile fashion. An oblique incision was then made from the corocoid towards the attachment of the deltoid. Dissection was carried down to the delto pectoral interval and the cephalic vein was identified and mobilized laterally. About 5mm of the pectoralis insertion was released. A zavala elevator was swept under the acromion to clear the subdeltoid space. The conjoined tendon was identified and the clavipectoral fascia was released to allow for placement of the eloina retractor. The biceps tendon was located in the groove and released. A tenodesis was performed distal to the bicipital groove with an 0 vicryl. A subscapularis tenotomy was performed in an oblique fashion. The tendon was tagged with 0 vicryl. The humerus was externally rotated until the joint dislocated. The starting drill and serial reamers were inserted just posterior to the bicipital groove. The cutting jig was inserted and utilized to make the humeral head resection. The opening reamers were utilized followed by serial broaches with about 30 degrees of retroversion. A size 10 stem was found to be a good fit with rotational and axial stability. The protector plate was then impacted. The inferior osteophytes were carefully removed from the humeral neck with a rongeur. The capsule was teased away from the subscapularis tendon and removed with bovie cautery. Attention was then turned to the glenoid. The biceps tendon was followed to the labrum which was removed using bovey cautery. The axillary nerve was palpated and protected. The edges of the glenoid were exposed. The aiming guide was used to insert the guide pin in the inferior third of the glenoid. The appropriate reamers were utilized to create the bleeding bone base for the glenoid. The central hole was drilled and the base plate was inserted. A nonlocking screw was inserted in the center with good fixation. The remaining locking screws were inserted. A standard 36mm glenosphere was selected and impacted into place. Attention was then turned back to the humerus. The stem, cup and standard poly trial was assembled. There was too much tension. Decision was made to revise the humeral resection. The trial setup was again inserted. The Reduction of the trial showed good tension and stability with minimal shuck and good range of motion. The trials were removed and the final implants were inserted. Pulse lavage with normal saline was used to irrigate the construct. The subscapularis was not reducible without undue tension and decision was made not to repair it. The wound was closed in a layered fashion with 0 vicryl, 3.0 vicryl, 4.0 monocryl, and skin glue. Wound was dressed with an aquacel dressing. The skilled assistance of the advanced practitioner was necessary through the entirety of the case for retraction and protection of important neurovascular structures.
[2024-08-08] MEDS: carvediloL 12.5 MG TAB PO SCH (00:41)
[2024-08-08] MEDS: SENNOSIDES-DOCUSATE SODIUM 1 EACH TAB PO PRN (00:41)
[2024-08-08] MEDS: SACUBITRIL/VALSARTAN 24 MG-26 MG TABLET PO SCH (00:41)
[2024-08-08] MEDS: ATORVASTATIN 10 MG TAB PO SCH (00:41)
[2024-08-08] MEDS: DIVALPROEX ER 250 MG TAB.ER.24H PO SCH (00:41)
[2024-08-08 06:13] LABS: Glucose,Whole Blood 180 mg/dL (70-110)
[2024-08-08] MEDS: INSULIN LISPRO (HumaLOG) 100 UNIT/ML 10 mL VL SQ SCH (07:00)
[2024-08-08] MEDS: LEVOTHYROXINE 137 MCG TAB PO SCH (07:00)
[2024-08-08 07:41] VITALS: BP 110/70; PULSE 76; RESP 16; TEMP 98.1
[2024-08-08] MEDS: DULoxetine HCL 60 MG CAPSULE.DR PO SCH (09:21)
[2024-08-08] MEDS: CLOPIDOGREL 75 MG TAB PO SCH (09:21)
[2024-08-08] MEDS: LORATADINE 10 MG TAB PO SCH (09:22)
[2024-08-08] MEDS: oxyCODONE-APAP 5-325MG 1 EACH TAB PO PRN (09:22)
[2024-08-08] MEDS: ASPIRIN 81 MG PO SCH (09:24)
[2024-08-08 09:49] LABS: Glucose,Whole Blood 139 mg/dL (70-110)
--- NOTE | 2024-08-08 11:55 | P.DS ---
Providers Expected date of discharge: 08/08/24 Attending physician: Nataliia Sanchez Consults: 08/07/24 18:09 Consult Physician Routine Consulting Provider: Tammy Zheng Consult Reason/Comments: medical management Do you want consulting provider notified?: Yes Primary care physician: Joselin Wells - Discharge Diagnosis(es) (1) Status post reverse arthroplasty of right shoulder Current Visit: Yes Status: Acute (2) Right shoulder pain Current Visit: Yes Status: Acute Hospital Course: This is a 79-year-old female who has history of severe degenerative arthritis of the right shoulder and presented to discuss surgical options. After discussion and consideration the patient elects to proceed with right reverse total shoulder arthroplasty. The pt is seen preoperatively by their family physician and cardiology and cleared for surgery. The patient is admitted to [facility] on 08/07/2024 for right reverse shoulder arthroplasty. She is doing well postoperatively. Vital signs and hemoglobin are stable. The pt is able to get up out of bed independently and is ambulating without assistance. Pain is well controlled. Patient is discharged to home on postoperative day #1 in stable condition. Please see med rec for accurate list of home medications. Patient Condition at Discharge: Stable Plan - Discharge Summary Discharge Rx Participant: Yes New Discharge Prescriptions: No Action Levothyroxine Sodium [Synthroid] 137 mcg PO MOTUWETHFRSA DULoxetine HCL [Cymbalta] 60 mg PO DAILY Omeprazole [PriLOSEC] 20 mg PO DAILY Insulin Detemir (Levemir) [Levemir] 26 unit SQ HS Atorvastatin [Lipitor] 10 mg PO HS Sacubitril/Valsartan [Entresto 24 mg-26 mg Tablet] 1 each PO BID HYDROcodone/APAP 7.5-325MG [[place] 7.5-325] 1 tab PO Q8H PRN PRN Reason: Pain Divalproex ER [Depakote ER] 250 mg PO BID Loratadine [Claritin] 10 mg PO DAILY Clopidogrel [Plavix] 75 mg PO DAILY carvediloL 12.5 mg PO BID Aspirin [Adult Low Dose Aspirin EC] 81 mg PO HS Discharge Medication List Levothyroxine Sodium [Synthroid] 137 mcg PO MOTUWETHFRSA 10/08/14 [History] DULoxetine HCL [Cymbalta] 60 mg PO DAILY 10/30/22 [History] HYDROcodone/APAP 7.5-325MG [[place] 7.5-325] 1 tab PO Q8H PRN 10/30/22 [History] Omeprazole [PriLOSEC] 20 mg PO DAILY 10/30/22 [History] Divalproex ER [Depakote ER] 250 mg PO BID 08/11/23 [History] Aspirin [Adult Low Dose Aspirin EC] 81 mg PO HS 08/02/24 [History] Atorvastatin [Lipitor] 10 mg PO HS 08/02/24 [History] Clopidogrel [Plavix] 75 mg PO DAILY 08/02/24 [History] Insulin Detemir (Levemir) [Levemir] 26 unit SQ HS 08/02/24 [History] Loratadine [Claritin] 10 mg PO DAILY 08/02/24 [History] Sacubitril/Valsartan [Entresto 24 mg-26 mg Tablet] 1 each PO BID 08/02/24 [History] carvediloL 12.5 mg PO BID 08/02/24 [History] Follow up Appointment(s)/Referral(s): Nataliia Sanchez [Doctor of Osteopathic Medicine] - 08/17/24 10:50 am (Appointment with Malinda Fraser NP.) Activity/Diet/Wound Care/Special Instructions: Keep dressing on for 1 week then remove. May shower with dressing on. Ice to shoulder Keep arm in sling but may come out for elbow range of motion exercises. May take over the counter stool softeners as needed for constipation due to pain medication. Follow up in 2 weeks. [facility] with any questions or concerns, Discharge Disposition: HOME SELF-CARE
--- NOTE | 2024-08-09 09:11 | P.CONS ---
History of Present Illness - Reason for Consult Consult date: 08/08/24 Medical management, status post reverse right shoulder total arthroplasty - History of Present Illness This is a very pleasant 79-year-old female who was admitted under orthopedic status post right reverse total shoulder arthroplasty. Patient reports she follows with Dr. Frost in the outpatient setting and underwent presurgical clearance with primary as well as cardiology with past medical history of diabetes mellitus, DVT, previous GI bleeds, hyperlipidemia, hypertension, myocardial infarction, musculoskeletal disorder, frequent falls, Mnire's disease, previous diverticulitis, osteoarthritis, pulmonary embolism, thyroid disorder, anxiety with panic disorders. Will add Accu-Cheks with sliding scale and also review and resume appropriate home medications. Patient is postop day 1 doing relatively well has a sling in place and reports her pain is discomfort but manageable on current regimen. Patient is looking to go home. REVIEW OF SYSTEMS: CONSTITUTIONAL: No fever, no malaise, no fatigue. HEENT: No recent visual problems or hearing problems. Denied any sore throat. CARDIOVASCULAR: No chest pain, orthopnea, PND, no palpitations, no syncope. PULMONARY: No shortness of breath, no cough, no hemoptysis. GASTROINTESTINAL: No diarrhea, no nausea, no vomiting, no abdominal pain. NEUROLOGICAL: No headaches, no weakness, no numbness. HEMATOLOGICAL: Denies any bleeding or petechiae. GENITOURINARY: Denies any burning micturition, frequency, or urgency. MUSCULOSKELETAL/RHEUMATOLOGICAL: Reports of mild right shoulder discomfort ENDOCRINE: Denies any polyuria or polydipsia. The rest of the 14-point review of systems is negative. PHYSICAL EXAMINATION: GENERAL: The patient is alert and oriented x3, not in any acute distress. Well developed, well nourished. Elderly appearing, obese HEENT: Pupils are round and equally reacting to light. EOMI. No scleral icterus. No conjunctival pallor. Normocephalic, atraumatic. No pharyngeal erythema. No thyromegaly. CARDIOVASCULAR: S1 and S2 present. No murmurs, rubs, or gallops. PULMONARY: Chest is clear to auscultation, no wheezing or crackles. ABDOMEN: Soft, nontender, nondistended, normoactive bowel sounds. No palpable organomegaly. MUSCULOSKELETAL: No joint swelling or deformity. Right shoulder sling noted, positive cap refill less than 3 EXTREMITIES: No cyanosis, clubbing, or pedal edema. NEUROLOGICAL: Gross neurological examination did not reveal any focal deficits. SKIN: No rashes. Assessment: Status post reverse right total total arthroplasty History of diabetes mellitus, uncontrolled with hyperglycemia History of DVT and PE Previous GI bleeds Hyperlipidemia history Hypertension history Frequent falls History of Mnire's disease Osteoarthritis Hypothyroidism History of anxiety and panic disorders Obesity with a BMI 33.5 GI prophylaxis DVT prophylaxis Full code Plan: Patient admitted under orthopedic status post right shoulder arthroplasty doing relatively well. Sling is noted and patient has positive pulses and denies any significant pain. Patient reports she would like to go home today and currently awaiting orthopedics for reevaluation Encourage incentive spirometer use at least 10 times every hour while awake Home medications reviewed and resumed as appropriate Recommend sliding scale with Accu-Cheks ACH while hospitalized and will adjust insulins accordingly Patient reports she did undergo presurgical clearance with cardiology as well as primary care provider in the outpatient setting. Patient is medically stable once cleared by orthopedics Thank you kindly for this consultation. We will continue to follow with orthopedics during hospitalization. The impression and plan of care has been dictated by Shandra Guzman, Nurse Practitioner as directed. Dr. Shola MD I have performed a history and examination and MDM of this patient, discussed the same with the dictator, and agree with the dictator's assessment and plan as written ,documented as a scribe. Based on total visit time, I have performed more than 50% of the visit. Past Medical History Past Medical History: Diabetes Mellitus, Deep Vein Thrombosis (DVT), GI Bleed, Hyperlipidemia, Hypertension, Myocardial Infarction ([place]), Musculoskeletal Disorder, Neurologic Disorder, Osteoarthritis (OA), Pulmonary Embolus (PE), Thyroid Disorder Additional Past Medical History / Comment(s): NECK PAINS, mi 10-08-14, dvt lt leg, bladder infection, pancreatitis,fell around [place] time.MIGRAINES, VERTIGO, MENIERES DISEASE, DIVERTICULITIS, broken shoulder Last Myocardial Infarction Date:: 10-08-14 History of Any Multi-Drug Resistant Organisms: None Reported Past Surgical History: Heart Catheterization, Joint Replacement Additional Past Surgical History / Comment(s): agus filter removed, CATARACTS-LENS IMPLANTS, BREAST REDUCTION, RT KNEE REPLACEMENT, 2 TUMORS REMOVED FROM RT LEG ,LT EYE SOCKET TUMOR REMOVED.HEMORRHIODECTOMY, RHIZOTOMY, watchman in place,loop recorder left shoulder fx and then repaired Past Anesthesia/Blood Transfusion Reactions: No Reported Reaction, Motion Sickness Additional Past Anesthesia/Blood Transfusion Reaction / Comm: limited ROM neck. Past Psychological History: Anxiety, Panic Disorder Additional Psychological History / Comment(s): 1999 ATTEMPTED SUICIDE. PT LIVES WITH HER , PT IS RETIRED WORKED AT [employer] AND HAD CAKE BUISNESS. PT IS INDEPENDENT. Smoking Status: Former smoker Past Alcohol Use History: None Reported Additional Past Alcohol Use History / Comment(s): STARTED SMOKING AT AGE 17, SMOKED 1 PPD THEN QUIT AGE 31. Past Drug Use History: None Reported - Past Family History Father Family Medical History: Cancer, Thyroid Disorder Additional Family Medical History / Comment(s): Liver CA. Mother Family Medical History: Thyroid Disorder Sister(s) Family Medical History: Cancer Additional Family Medical History / Comment(s): Throat CA. Medications and Allergies Home Medications Medication Instructions Recorded Confirmed Type Levothyroxine Sodium [Synthroid] 137 mcg PO MOTUWETHFRSA 10/08/14 08/07/24 History DULoxetine HCL [Cymbalta] 60 mg PO DAILY 10/30/22 08/02/24 History HYDROcodone/APAP 7.5-325MG [[place] 1 tab PO Q8H PRN 10/30/22 08/07/24 History 7.5-325] Omeprazole [PriLOSEC] 20 mg PO DAILY 10/30/22 08/07/24 History Divalproex ER [Depakote ER] 250 mg PO BID 08/11/23 08/07/24 History Aspirin [Adult Low Dose Aspirin EC] 81 mg PO HS 08/02/24 08/02/24 History Atorvastatin [Lipitor] 10 mg PO HS 08/02/24 08/07/24 History Clopidogrel [Plavix] 75 mg PO DAILY 08/02/24 08/02/24 History Insulin Detemir (Levemir) [Levemir] 26 unit SQ HS 08/02/24 08/07/24 History Loratadine [Claritin] 10 mg PO DAILY 08/02/24 08/02/24 History Sacubitril/Valsartan [Entresto 24 1 each PO BID 08/02/24 08/07/24 History mg-26 mg Tablet] carvediloL 12.5 mg PO BID 08/02/24 08/07/24 History Allergies Allergy/AdvReac Type Severity Reaction Status Date / Time adhesive Allergy swelling,rash Verified 08/07/24 13:17 to surgical adhesive Horse/Equine Containing Allergy Unknown Verified 08/07/24 13:17 Products venom-honey bee Allergy Swelling Verified 08/07/24 13:17 [bee venom (honey bee)] Physical Exam Vitals: Vital Signs Temp Pulse Resp BP Pulse Ox 08/08/24 06:50 98.1 F 76 16 110/70 95 08/08/24 01:30 97.7 F 81 18 121/69 96 08/07/24 19:48 97.9 F 77 16 149/83 96 08/07/24 19:22 73 14 125/68 93 L 08/07/24 19:07 75 14 124/67 96 08/07/24 18:52 74 14 137/65 99 08/07/24 18:37 77 14 127/76 99 08/07/24 18:22 79 14 134/76 99 08/07/24 18:07 97.3 F L 87 14 140/83 99 08/07/24 14:52 64 16 143/67 96 08/07/24 13:49 96.9 F L 71 18 161/83 98 Intake and Output 08/07/24 08/08/24 08/08/24 22:59 06:59 14:59 Intake Total 1000 200 Output Total 200 Balance 800 200 Intake: IV 1000 Oral 200 Output: Estimated Blood Loss 200 Other: Voiding Method Toilet # Voids 1 Weight 91.2 kg Results Labs: Abnormal Lab Results - Last 24 Hours (Table) 08/08/24 Range/Units 06:11 POC Glucose (mg/dL) 180 H (70-110) mg/dL
== END 2024-08-08 13:10 | disposition home or self-care (01) ==
LOC: OR 13:04 → 4SSUR 18:07 → OR 08-08 13:10
PROVIDERS: ATTEND Orthopaedic Surgery Hand Surgery
DX: M19.011 Primary osteoarthritis, right shoulder (principal); G89.18 Other acute postprocedural pain; I48.91 Unspecified atrial fibrillation; I10 Essential (primary) hypertension; E11.9 Type 2 diabetes mellitus without complications; E07.9 Disorder of thyroid, unspecified; F41.9 Anxiety disorder, unspecified; Z79.890 Hormone replacement therapy; Z79.01 Long term (current) use of anticoagulants; Z79.02 Long term (current) use of antithrombotics/antiplatelets; Z79.82 Long term (current) use of aspirin; Z79.4 Long term (current) use of insulin; Z79.899 Other long term (current) drug therapy; Z87.891 Personal history of nicotine dependence; Z86.711 Personal history of pulmonary embolism; Z96.612 Presence of left artificial shoulder joint
CPT/HCPCS: 23472; 64415; 73020; C1776; J2250; J0330; J1100; J2710; J0690 ×2; J2405; J2003; J3010; J2795; J2704; J2371; J1596

== ENCOUNTER → 2024-09-07 | Outpatient (CLI) | payer MEDICARE ==
[2024-09-07 15:15] LABS: HGB 13.3 g/dL (12.0-15.0); MCH 28.1 pg (27.0-32.0); MCHC 32.4 g/dL (32.0-37.0); MCV 86.5 FL (80.0-97.0); Mean Platelet Volume 10.6 FL (9.5-12.2); NRBC Per 100 WBC 0 X 10*3/uL (0.00-0.01); Platelet Count 228 X 10*3/uL (140-440); RBC 4.74 X 10*6/uL (4.10-5.20); RDW 13.6 % (11.5-14.5)
[2024-09-07 17:08] LABS: Erythrocyte Sedimentation Rate 32 mm/Hr (0-30)
== END | disposition home or self-care (01) ==
LOC: LABWHC1 11:27
PROVIDERS: ATTEND Orthopaedic Surgery Hand Surgery
DX: Z48.89 Encounter for other specified surgical aftercare (principal)
CPT/HCPCS: 36415; 85027; 85379; 85652; 86140